=== PATIENT | female | born 1975 | race Two or more races ===

== ENCOUNTER 2021-04-04 06:39 | Outpatient (REF) | payer OTHER, SELFPAY ==
--- NOTE | ~2021-04-04 | XR_ITS ---
EXAMINATION: XR SCAPULA, LEFT CLINICAL INFORMATION: Left shoulder pain COMPARISON: None TECHNIQUE: AP and scapular Y views of the left scapula. FINDINGS: There is no visible acute fracture, dislocation or subluxations seen. There is no bony erosive changes. The soft tissues are normal XR/XR scapula LT IMPRESSION: Unremarkable left shoulder exam.
[2021-04-04 14:14] LABS: Alanine Aminotransferase 21 U/L (0-31); Albumin Level 4.4 g/dL (3.5-5.0); Alkaline Phosphatase 72 U/L (39-117); Anion Gap 13 (12-20); Aspartate Amino Transferase 24 U/L (5-31); Bilirubin Total 0.7 mg/dL (0.0-1.0); Blood Urea Nitrogen 19 mg/dL (9-16); Calcium 9.6 mg/dL (8.4-10.2); Carbon Dioxide 29 mmol/L (22-29); Chloride 104 mmol/L (96-108); Cholesterol 196 mg/dL; Estimated Glomerular Filt Rate > 60; Glucose Fasting 94 mg/dL (60-99); HDL Cholesterol 43 mg/dL; LDL Cholesterol Calculated 136 mg/dl; Potassium 4.9 mmol/L (3.3-5.1); Sodium 141 mmol/L (135-145); Total Protein 7.7 g/dL (6.5-8.0); Triglycerides 85 mg/dL
== END 2021-04-04 06:40 | disposition home or self-care (01) ==
LOC: HO.HMGCLDS 06:39
PROVIDERS: PCP Internal Medicine; Visit Provider Internal Medicine
DX: E78.5 Hyperlipidemia, unspecified (principal); I10 Essential (primary) hypertension; M89.8X1 Other specified disorders of bone, shoulder
CPT/HCPCS: 36415; 73010; 80053; 80061

== ENCOUNTER 2021-10-15 16:00 | Outpatient (RCR) | payer OTHER, SELFPAY ==
--- NOTE | 2021-09-03 18:31 | MHC.PT.EP ---
[facility] [place] Office [place] Office [place] Office [address] Xenia Esquivel [address] [phone] F: [phone] F: [phone] F: [phone] F: [phone] Physical Therapy Plan of Care Date of Evaluation: Date of Surgery: n/a Diagnosis: dorsalgia Assessment: Pt is a 46/yo F referred to PT for eval/treat of dorsalgia. Signs and symptoms are consistent with neck and upper back dysfunction resulting in significant decreased in tolerance to participate in her occupation, decreased tolerance of lifting objects off of the floor, as well as disrupted sleep secondary to postural impairment, Severe TTP from the level of T8 to suboccipital region, as well as, significant pain with cervical and shoulder end range ROM. Pt is deemed appropriate to receive skilled PT to address her physical impairment and improve her functional ability. Frequency and Duration: The patient will be seen 2x/wk for 5 wk Short Term Goals: Initiate HEP w/ evidence of compliance pt will report pain less than 2/10 at rest; initial 6/10 Usp Goals: pt will have be I with HEP pt will improve her Radha score by at least 5 point; initial score 11/50 pt will report that pain doesn't prevent her from sleeping; initial - my sleep is only 1/2 my normal amount Treatment Plan: Modalities to reduce pain, spasms and effusion. Manual therapy to restore motion and function. Therapeutic exercise to improve strength and flexibility. Neuromuscular re-education for posture and balance. Therapeutic activities to return to functional activities of daily living. Electronically signed by: Kumar Gupta PT Please sign and return to therapist. Thank you for your referral.
--- NOTE | 2021-10-15 19:15 | MHC.PT.DC ---
[facility] [place] Office [place] Office [place] Office [address] Xenia Esquivel [address] [phone] F: [phone] F: [phone] F: [phone] F: [phone] Physical Therapy Discharge Report Diagnosis: dorsalgia Date of Surgery: n/a Date of Evaluation: 09/03/21 Date of Discharge: 10/15/21 Treatments to Date: 9 Cancellations to Date: No Shows to Date: Discharge Status: Achieved Goals Improved Function Independent with HEP Discharge Summary: Apoorva has been an active participant in her therapy in and out of the clinic, has become I with her home program, has met all of her therapeutic goals, and is in agreement with DC at this time. Electronically signed by: Kumar Gupta PT. Please sign and return to therapist. Thank you for your referral.
== END 2021-10-15 19:16 | disposition home or self-care (01) ==
LOC: HO.PTCHIC 16:00
PROVIDERS: PCP Internal Medicine; Visit Provider Internal Medicine
DX: M54.9 Dorsalgia, unspecified (principal)
CPT/HCPCS: 97014; 97110; 97140; 97161

== ENCOUNTER 2022-11-18 14:35 | Outpatient (REF) | payer OTHER, SELFPAY | END 2022-11-18 14:36 | disposition home or self-care (01) | LOC: HO.MAMMO 14:35 | PROVIDERS: PCP Internal Medicine; Visit Provider Internal Medicine | DX: Z12.31 Encounter for screening mammogram for malignant neoplasm of breast (principal) | CPT/HCPCS: 77063; 77067 ==

== ENCOUNTER 2023-01-22 09:23 | Outpatient (REF) | payer OTHER, SELFPAY ==
[2023-01-22 11:10] LABS: MANUAL DIFF FLAG NO
[2023-01-22 11:19] LABS: Basophils Percent Auto 0.4 % (0-2); Eosinophils Absolute Auto 0.1 X10*3/uL (0.0-0.4); Eosinophils Percent Auto 1.9 % (0-4); Hematocrit 39.3 % (37.0-47.0); Hemoglobin 13.3 g/dl (12.0-16.0); Imm Gran Abs Auto 0.01 X10*3/uL (0.00-0.03); Imm Gran Pct Auto 0.2 % (0.0-0.4); Lymphocytes Absolute Auto 2.3 X10*3/uL (1.2-4.9); Lymphocytes Percent Auto 49.6 % (20-40); Mean Corpuscular HGB Conc 33.8 g/dl (31.0-35.0); Mean Corpuscular Hemoglobin 28.6 pg (27.0-33.0); Mean Corpuscular Volume 84.5 fL (80.0-98.0); Mean Platelet Volume 10.8 fL (9.4-12.3); Monocytes Absolute Auto 0.2 X10*3/uL (0.1-1.2); Monocytes Percent Auto 4.9 % (2-11); Platelet Count 245 X10*3/uL (160-400); Red Blood Count 4.65 X10*6/uL (4.20-5.50); Red Cell Distribution Width 12.8 % (11.0-16.0); White Blood Count 4.7 X10*3/uL (4.8-10.8)
[2023-01-22 13:08] LABS: Alanine Aminotransferase 39 U/L (0-31); Albumin Level 4.1 g/dL (3.5-5.0); Alkaline Phosphatase 71 U/L (39-117); Anion Gap 11 (12-20); Aspartate Amino Transferase 36 U/L (5-31); Bilirubin Total 0.9 mg/dL (0.0-1.0); Blood Urea Nitrogen 10 mg/dL (9-16); Calcium 8.9 mg/dL (8.4-10.2); Carbon Dioxide 26 mmol/L (22-29); Chloride 109 mmol/L (96-108); Cholesterol 218 mg/dL; Estimated Glomerular Filt Rate > 60; Glucose Fasting 95 mg/dL (60-99); HDL Cholesterol 49 mg/dL; LDL Cholesterol Calculated 153 mg/dl; Sodium 142 mmol/L (135-145); Total Protein 7.1 g/dL (6.5-8.0); Triglycerides 81 mg/dL
[2023-01-22 13:42] LABS: TSH reflex Free T4 1.28 uIU/mL (0.32-4.0); Vitamin B12 480 pg/mL (200-900); Vitamin D 25-OH Total 18.6 ng/mL (>30)
== END 2023-01-22 09:24 | disposition home or self-care (01) ==
LOC: HO.HMGCLDS 09:23
PROVIDERS: PCP Internal Medicine; Visit Provider Nurse Practitioner Family
DX: I10 Essential (primary) hypertension (principal)
CPT/HCPCS: 36415; 80053; 80061; 82306; 82607; 82746; 84443; 85025

== ENCOUNTER 2023-06-10 11:31 | Outpatient (AMB) | payer OTHER, MEDICAID, SELFPAY ==
[2023-06-10 11:45] VITALS: BP 158/96; PULSE 51; BMI 33.9
--- NOTE | 2023-06-10 11:45 | A.OFFVIS_ITS ---
Intake Vital Signs 06/10/23 11:45 Height 5 ft 2 in Weight 185 lb 10.067 oz BMI 33.9 BP 158/96 H Blood Pressure Location Lt brachial Position Sitting Pulse 51 Intake Visit Reasons: Colonoscopy Screening Intake Note: Apoorva presents in office as a new.patient for a colonoscopy screening PT CC: pt reports having constipation, bloating , pt denies any other GI Issues Supervisor Core Drilling Required: Yes Supervisor Core Drilling Language: Beninese Accompanied by: Self / Same As Patient Allergies penicillin V Allergy (Intermediate, Verified 06/10/23 11:47) hives HPI Colonoscopy Screening HPI Details 47 year old? female here today for pre colonoscopy screening.? Patient was sent to us by her PCP.? This is her first colonoscopy screening.? Patient denies any gastrointestinal symptoms in the past or at present.? Patient reports occasional constipation with rice or red meat. Patient believes that her older sister was diagnosed with colorectal cancer and had colon resection. Denies history of difficulty with sedation or anesthesia in the past.? Negative for history of sleep apnea.? Denies any history of cardiac, renal, pulmonary, or hepatic disease.?? No history of infectious? diseases like hepatitis A, B, C, HIV or tuberculosis.? Patient is not on any anticoagulation therapy. [facility] Medical History Essential hypertension Obese Pain of left clavicle Pain of left scapula Upper back pain Surgical History History of endometriosis Family History Father Hypertension Mother No problems noted. Social History Housing: House Alcohol intake: never Patient Tobacco Use Status: Never used Tobacco e-Cigarette/Vaping Use: Never Used Second Hand Smoke Exposure: No service: No Current occupational status: employed Current occupational exposures/hazards: No Cognitive needs: No Hearing needs: No Vision needs: No Review of Systems Const Denies weight gain and Denies weight loss ENT Reports no additional complaints, Denies dysphagia and Denies odynophagia Card Reports no additional complaints Resp Reports no additional complaints GI Denies abdominal pain, Denies belching, Denies melena, Reports bloating, Reports constipation, Denies dysphagia, Denies excessive flatus, Denies dyspepsia, Denies heartburn, Denies diarrhea, Denies loose stools, Denies nausea, Denies odynophagia and Denies vomiting Reports no additional complaints Musc Reports no additional complaints Neuro Reports no additional complaints Psych Reports no additional complaints Endo Reports no additional complaints Physical Exam Vital Signs: Last Vital Signs Pulse 51 06/10/23 11:45 BP 158/96 H 06/10/23 11:45 BMI result Body Mass Index 33.9 Const General: healthy appearing, no acute distress and well developed Nutritional Appearance: obese Orientation/consciousness: patient oriented x3 HEENT Head: Yes normal to inspection, Yes normocephalic and Yes atraumatic Face and sinus: Yes normal facial exam Mouth: Normal oral and palatal mucosa present Throat: Yes posterior oropharynx normal, Yes tonsils normal and Yes uvula midline Eyes General: appearance normal, both eyes and all related structures Neck Neck: Yes normal visual inspection, Yes full ROM and Yes trachea midline Thyroid: Thyroid normal Resp Effort & Inspection: normal respiratory effort, able to speak in complete sentences, no tracheal deviation and symmetric chest movement Auscultation: clear to auscultation bilaterally Cardio Rate: regular rate Heart sounds: S1 normal heart sound present and S2 normal heart sound present GI Inspection: Yes normal to inspection, No distended and Yes obesity Palpation (GI): Soft to palpation, not firm, nontender and No hepatosplenomegaly present Auscultation: normal bowel sounds General: Yes no CVA tenderness Back/Spine/Pelvis Back: no CVA tenderness Skin General skin exam: elasticity normal, turgor normal and dry skin Neuro General: patient oriented x3 Psych Appearance: grossly normal Mental Status: mental status grossly normal Speech and movement: Normal speech and movement present Affect: normal affect Assessment & Plan Assessment & Plan (1) Constipation: Code(s): K59.00 - Constipation, unspecified Qualifiers: Constipation type: slow transit constipation Qualified Code(s): K59.01 - Slow transit constipation Plan: Patient will start MiraLax daily. Patient was also encouraged to increase fluid intake and activity to promote better bowel motility. (2) Screening for colon cancer: Code(s): Z12.11 - Encounter for screening for malignant neoplasm of colon Plan: Patient denies any GI, cardiac or respiratory symptoms.? Reports constipation. Patient will return in 6 weeks to discuss colonoscopy. She is agreeable to plan of care and verbalizes understanding of instructions. She was given the opportunity ask questions and all questions answered. If thank you for allowing me to participate in her care Orders: Orders Liver Panel 06/10/23 R10.9 - Unspecified abdominal pain Medications: New polyethylene glycol 3350 (Miralax) 17 grams PO DAILY 510 grams 2RF Coding Level of Care Code New Pt Level 3 (52744) Diagnoses Constipation K59.01 Constipation type: slow transit constipation Screening for colon cancer Z12.11 Time Spent (min) 40 Comment 30 minutes spent with patient and additional 10 minutes spent reviewing her records
== END 2023-06-10 12:19 | disposition home or self-care (01) ==
PROVIDERS: PCP Internal Medicine; Visit Provider Nurse Practitioner Family
DX: K59.01 Slow transit constipation (principal); Z12.11 Encounter for screening for malignant neoplasm of colon
CPT/HCPCS: 99203

== ENCOUNTER → 2023-06-10 11:31 | Outpatient (BNVA) | payer OTHER, SELFPAY | PROVIDERS: PCP Internal Medicine; Visit Provider Nurse Practitioner Family | DX: Z12.11 Encounter for screening for malignant neoplasm of colon (principal); K59.01 Slow transit constipation | CPT/HCPCS: 99202 ==

== ENCOUNTER 2023-07-11 13:18 | Outpatient (AMB) | payer OTHER, SELFPAY ==
--- NOTE | 2023-07-11 13:25 | MHC.PC.OV ---
Vital Signs 07/11/23 13:27 07/11/23 14:03 Height 5 ft 2 in Weight 183 lb 8 oz BMI 33.6 BP 144/86 H 145/90 H Blood Pressure Location Lt brachial Lt brachial Position Sitting Sitting Pulse 64 Pulse Source Pulse Oximeter Pulse Oximetry (%) 99 Oxygen Delivery Method Room Air Intake Visit Reasons: 6 month follow up Intake Note: Pt is here for 6 months F/U for HTN. 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 Accompanied by: Self / Same As Patient Allergies penicillin V Allergy (Intermediate, Verified 07/11/23 13:31) hives Medication List - Last Reconciled 07/11/23 by Collette Carrillo MD cholecalciferol (vitamin D3) 50 mcg PO DAILY hydrochlorothiazide 12.5 mg PO QAM polyethylene glycol 3350 (Miralax) 17 grams PO DAILY Tobacco use date assessed: 01/11/23 Dental Screening Dental Screen Date: 07/11/23 Did you have a dental visit in the last 12 months?: Yes Did you have a dental problem in the last 6 months where you did not have access to dental care?: No Was dental information given to patient?: Patient has dentist HPI HPI Comments History of Present Illness Details This is a 48-year-old female with hypertension, hyperlipidemia and low vitamin-D that complains of pain of left scapular that started few months ago after she fell in the bathroom. This pain only happens when she is doing excessive activity. She has full active range of motion. The pain is relieved by by Tylenol. Blood pressure slightly elevated today and she has not take her hydrochlorothiazide. Blood pressure will be recheck in 3 weeks by nurse navigator. Last cholesterol was elevated but she did not require any statins. Lipid panel will be repeated. On vitamin-D supplements for low vitamin-D and levels will be repeated. No chest pain or shortness of breath. [facility] Medical History Essential hypertension Obese Pain of left clavicle Pain of left scapula Upper back pain Surgical History History of endometriosis Family History Father Hypertension Mother No problems noted. Social History Housing: House Alcohol intake: never Patient Tobacco Use Status: Never used Tobacco e-Cigarette/Vaping Use: Never Used Second Hand Smoke Exposure: No service: No Current occupational status: employed Current occupational exposures/hazards: No Cognitive needs: No Hearing needs: No Vision needs: No Questionnaire Thrive Questionnaire Date Thrive assessed: 01/11/23 ONDINA-7 AMB Questionnaire ONDINA-7 Date ONDINA - 7 assessed: 01/11/23 Source: Developed by Drs. Luis Manuel De Dios, Kavya Dey, Gerry Becerra and colleagues, with an educational norah from [employer]. Review of Systems Const All systems reviewed & are unremarkable except as noted in HPI and below Eyes Reports no additional complaints, Denies change in vision and Denies other visual disturbances Card Denies chest pain at rest, Denies chest pain with activity, Denies edema, Denies irregular heart rhythm, Denies claudication, Denies dyspnea, Denies dyspnea on exertion, Denies orthopnea, Denies paroxysmal nocturnal dyspnea and Denies slow heart rate Resp Denies cough, Denies dyspnea and Denies dyspnea on exertion GI Denies abdominal pain, Denies change in bowel habits, Denies excessive flatus, Denies nausea and Denies vomiting Denies urinary incontinence, Denies urinary hesitancy and Denies urinary urgency Musc Denies abnormal gait, Denies atrophy, Denies deformity and Denies limited range of motion Skin/Breast Denies bleeding lesions, Denies changing lesions and Denies rash Neuro Denies abnormal gait and Denies lack of coordination Physical exam (Primary Care) Vital Signs: Last Vital Signs Pulse 64 07/11/23 13:27 BP 144/86 H 07/11/23 13:27 Pulse Ox 99 07/11/23 13:27 Oxygen Delivery Method Room Air 07/11/23 13:27 BMI result Body Mass Index 33.6 Tobacco/Smoking Status: Tobacco use Status Tobacco use date assessed 01/11/23 07/11/23 13:26 Patient Tobacco Use Status Never used Tobacco 07/11/23 13:26 e-Cigarette/Vaping Use Never Used 07/11/23 13:26 Thrive Assessment: Date of Thrive Assessment Date Thrive assessed 01/11/23 07/11/23 13:26 Eyes General: appearance normal, both eyes and all related structures Eyelids: Yes eyelids normal Conjunctivae: conjunctivae normal Neck Neck: Yes normal visual inspection and Yes supple Resp Effort & Inspection: normal respiratory effort Auscultation: clear to auscultation bilaterally Cardio Jugular venous distension: no JVD Rate: regular rate Rhythm: regular rhythm Heart sounds: S1 normal heart sound present and S2 normal heart sound present Extrem General: Yes full ROM Assessment and Plan Assessment & Plan (1) Essential hypertension: Code(s): I10 - Essential (primary) hypertension Plan: Continue hydrochlorothiazide. Recheck blood pressure in 3 weeks with nurse navigator. Blood pressure goal is equal or less than 130/80. (2) Pain of left scapula: Code(s): M89.8X1 - Other specified disorders of bone, shoulder Plan: Continue [id number] Tylenol as needed. (3) Hyperlipidemia: Code(s): E78.5 - Hyperlipidemia, unspecified Plan: Start low-cholesterol diet. (4) Low vitamin D level: Code(s): R79.89 - Other specified abnormal findings of blood chemistry Plan: Continue vitamin-D supplement Orders: Orders Comprehensive [place]. Panel Fast Today I10 - Essential (primary) hypertension Lipid Panel Today E78.5 - Hyperlipidemia, unspecified Vitamin D 25-OH Total Today E55.9 - Vitamin D deficiency, unspecified Coding Level of Care Code Est Pt Level 4 (95975) Diagnoses Essential hypertension I10 Pain of left scapula M89.8X1 Hyperlipidemia E78.5 Low vitamin D level R79.89 Time Spent (min) 21
[2023-07-11 13:27] VITALS: BP 144/86; PULSE 64; O2SAT 99; BMI 33.6
[2023-07-11 14:03] VITALS: BP 145/90
== END 2023-07-11 13:43 | disposition home or self-care (01) ==
PROVIDERS: Visit Provider Internal Medicine
DX: I10 Essential (primary) hypertension (principal); M89.8X1 Other specified disorders of bone, shoulder; E78.5 Hyperlipidemia, unspecified; R79.89 Other specified abnormal findings of blood chemistry
CPT/HCPCS: 99214

== ENCOUNTER 2023-07-16 08:44 | Outpatient (REF) | payer OTHER, SELFPAY ==
[2023-07-16 11:56] LABS: Alanine Aminotransferase 24 U/L (0-31); Albumin Level 4.6 g/dL (3.5-5.0); Alkaline Phosphatase 82 U/L (39-117); Anion Gap 13 (12-20); Aspartate Amino Transferase 29 U/L (5-31); Bilirubin Total 1.1 mg/dL (0.0-1.0); Blood Urea Nitrogen 10 mg/dL (9-16); Carbon Dioxide 29 mmol/L (22-29); Chloride 102 mmol/L (96-108); Cholesterol 205 mg/dL; Estimated Glomerular Filt Rate > 60; Glucose Fasting 89 mg/dL (60-99); HDL Cholesterol 50 mg/dL; LDL Cholesterol Calculated 137 mg/dl; Potassium 3.3 mmol/L (3.3-5.1); Sodium 141 mmol/L (135-145); Total Protein 8.5 g/dL (6.5-8.0); Triglycerides 90 mg/dL
[2023-07-16 12:15] LABS: Vitamin D 25-OH Total 30.1 ng/mL (>30)
== END 2023-07-16 08:45 | disposition home or self-care (01) ==
LOC: HO.HMGCLDS 08:44
PROVIDERS: PCP Internal Medicine; Visit Provider Internal Medicine
DX: E55.9 Vitamin D deficiency, unspecified (principal); I10 Essential (primary) hypertension; E78.5 Hyperlipidemia, unspecified
CPT/HCPCS: 36415; 80053; 80061; 82306

== ENCOUNTER 2023-07-19 11:23 | Outpatient (AMB) | payer OTHER, SELFPAY ==
--- NOTE | 2023-07-19 11:32 | MHC.OFFVIS ---
Intake Vital Signs 07/19/23 11:33 Height 5 ft 2 in Weight 181 lb 14.102 oz BMI 33.3 BP 163/92 H Blood Pressure Location Lt brachial Position Sitting Pulse 73 Intake Visit Reasons: 6 week fu Intake Note: Apoorva presents in office as a est.patient for a 6week f/u for constipation PT CC: pt reports having no concerns pt denies any other GI Issues Patient Financial Representative Required: Yes Patient Financial Representative Language: Bengali Accompanied by: Self / Same As Patient Allergies penicillin V Allergy (Intermediate, Verified 07/19/23 11:32) hives HPI 6 week fu HPI Details LAST VISIT: HPI 47 year old? female here today for pre colonoscopy screening.? Patient was sent to us by her PCP.? This is her first colonoscopy screening.? Patient denies any gastrointestinal symptoms in the past or at present.? Patient reports occasional constipation with rice or red meat.? Patient believes that her older sister was diagnosed with colorectal cancer and had colon resection. ? Denies history of difficulty with sedation or anesthesia in the past.? Negative for history of sleep apnea.? Denies any history of cardiac, renal, pulmonary, or hepatic disease.?? No history of infectious? diseases like hepatitis A, B, C, HIV or tuberculosis.? Patient is not on any anticoagulation therapy.?? ASSESSMENT AND PLAN Constipation Patient will start MiraLax daily. Patient was also encouraged to increase fluid intake and activity to promote better bowel motility. Screening for colon cancer Patient denies any GI, cardiac or respiratory symptoms.? Reports constipation. Patient will return in 6 weeks to discuss colonoscopy. She is agreeable to plan of care and verbalizes understanding of instructions. She was given the opportunity ask questions and all questions answered. ? If thank you for allowing me to participate in her care Plan Orders Orders Liver Panel 06/10/23 R10.9 Medications New polyethylene glycol 3350 (Miralax) 17 grams PO DAILY 510 grams 2RF TODAY'S VISIT: Patient is here today for follow-up to discuss colonoscopy results. Patient reports that she is moving her bowels better. No change otherwise last visit. Patient continues to have no cardiac or respiratory symptoms. No issues with anesthesia in the past. No history of sleep apnea. Not on any anticoagulation therapy. Liver enzymes repeated and patient had normal results. [facility] Medical History Essential hypertension Obese Pain of left clavicle Pain of left scapula Upper back pain Surgical History History of endometriosis Family History Father Hypertension Mother No problems noted. Social History Housing: House Alcohol intake: never Patient Tobacco Use Status: Never used Tobacco e-Cigarette/Vaping Use: Never Used Second Hand Smoke Exposure: No service: No Current occupational status: employed Current occupational exposures/hazards: No Cognitive needs: No Hearing needs: No Vision needs: No Review of Systems Const Denies weight gain and Denies weight loss ENT Reports no additional complaints, Denies dysphagia and Denies odynophagia Card Reports no additional complaints Resp Reports no additional complaints GI Denies abdominal pain, Denies belching, Denies melena, Denies bloating, Denies change in bowel habits, Denies dysphagia, Denies excessive flatus, Denies dyspepsia, Denies heartburn, Denies diarrhea, Denies loose stools, Denies nausea, Denies odynophagia and Denies vomiting Musc Reports no additional complaints Neuro Reports no additional complaints Psych Reports no additional complaints Endo Reports no additional complaints Physical Exam Vital Signs: Last Vital Signs Pulse 73 07/19/23 11:33 BP 163/92 H 07/19/23 11:33 BMI result Body Mass Index 33.3 Const General: healthy appearing, no acute distress and well developed Nutritional Appearance: obese Orientation/consciousness: patient oriented x3 HEENT Head: Yes normal to inspection, Yes normocephalic and Yes atraumatic Face and sinus: Yes normal facial exam Mouth: Normal oral and palatal mucosa present Throat: Yes posterior oropharynx normal, Yes tonsils normal and Yes uvula midline Eyes General: appearance normal, both eyes and all related structures Neck Neck: Yes normal visual inspection, Yes full ROM and Yes trachea midline Thyroid: Thyroid normal Resp Effort & Inspection: normal respiratory effort, able to speak in complete sentences, no tracheal deviation and symmetric chest movement Auscultation: clear to auscultation bilaterally Cardio Rate: regular rate Heart sounds: S1 normal heart sound present and S2 normal heart sound present GI Inspection: Yes normal to inspection, No distended and Yes obesity Palpation (GI): Soft to palpation, not firm, nontender and No hepatosplenomegaly present Auscultation: normal bowel sounds General: Yes no CVA tenderness Back/Spine/Pelvis Back: no CVA tenderness Skin General skin exam: elasticity normal, turgor normal and dry skin Neuro General: patient oriented x3 Psych Appearance: grossly normal Mental Status: mental status grossly normal Speech and movement: Normal speech and movement present Results Reviewed Results Reviewed: Laboratory Tests 07/16/23 08:47 AST 29 ALT 24 25-OH Vitamin D Total 30.1 Assessment & Plan Assessment & Plan (1) Screening for colon cancer: Code(s): Z12.11 - Encounter for screening for malignant neoplasm of colon Plan: As mentioned above in HPI patient has no issues with anesthesia in the past. No history of sleep apnea. Not on any anticoagulation medication. Denies any cardiac or respiratory symptoms. What to expect before during and after the procedure discussed with patient. Clear liquid diet and how to prep before the procedure discussed with patient (2) Constipation: Code(s): K59.00 - Constipation, unspecified Qualifiers: Constipation type: slow transit constipation Qualified Code(s): K59.01 - Slow transit constipation Plan: Continue MiraLax daily. Patient was encouraged to increase fluid intake and activity to promote better bowel motility. I will see patient after the procedure, sooner on as needed basis. Patient is agreeable to this plan and verbalizes understanding of instructions. She was given the opportunity to ask questions and all questions answered. Thank you for allowing me to participate in her care Medications: New bisacodyl (Dulcolax (bisacodyl)) take 2 tabs at noon the day before your colonoscopy 10 mg (2 x 5 mg) PO ONCE 2 tabs 0RF 1 day Z12.11 - Encounter for screening for malignant neoplasm of colon polyethylene glycol 3350 (Miralax) As directed by gastroenterology department at [facility] 238 grams PO ONCE 238 grams 0RF Z12.11 - Encounter for screening for malignant neoplasm of colon Coding Level of Care Code Est Pt Level 3 (92277) Diagnoses Screening for colon cancer Z12.11 Constipation K59.01 Constipation type: slow transit constipation Time Spent (min) 30 Comment 20 minutes spent with patient and additional 10 minutes spent reviewing her records
[2023-07-19 11:33] VITALS: BP 163/92; PULSE 73; BMI 33.3
== END 2023-07-19 12:08 | disposition home or self-care (01) ==
PROVIDERS: PCP Internal Medicine; Visit Provider Nurse Practitioner Family
DX: Z12.11 Encounter for screening for malignant neoplasm of colon (principal); K59.01 Slow transit constipation; Z01.818 Encounter for other preprocedural examination
CPT/HCPCS: 99213

== ENCOUNTER → 2023-07-19 11:23 | Outpatient (BNVA) | payer OTHER, SELFPAY | PROVIDERS: PCP Internal Medicine; Visit Provider Nurse Practitioner Family | DX: Z12.11 Encounter for screening for malignant neoplasm of colon (principal); K59.01 Slow transit constipation | CPT/HCPCS: 99212 ==

== ENCOUNTER 2023-12-20 08:09 | Outpatient (REF) | payer OTHER, SELFPAY | END 2023-12-20 08:10 | disposition home or self-care (01) | LOC: HO.MAMMO 08:09 | PROVIDERS: PCP Internal Medicine; Visit Provider Internal Medicine | DX: Z12.31 Encounter for screening mammogram for malignant neoplasm of breast (principal) | CPT/HCPCS: 77063; 77067 ==

== ENCOUNTER → 2023-12-20 08:15 | Outpatient (BNV) | payer OTHER, SELFPAY | PROVIDERS: PCP Internal Medicine; Visit Provider Radiology Diagnostic Radiology | DX: Z12.31 Encounter for screening mammogram for malignant neoplasm of breast (principal) | CPT/HCPCS: 77063; 77067 ==

== ENCOUNTER 2023-12-30 08:01 | Day surgery (SDC) | payer OTHER, SELFPAY ==
--- NOTE | 2023-12-29 09:32 | HO.ANESPROP2 ---
HPI - Anesthesia Eval Consult details Narrative: 48yo F for Colonoscopy PMFSH Active Problems Active Problems: All Active Problems (Updated 02/02/23 @ 13:57 by JYOTI Sultana) Hyperlipidemia (Acute) Elevated LFTs (Acute) Low vitamin D level (Acute) Adult general medical exam (Acute) Cervical cancer screening (Acute) Screening for colon cancer (Acute) Upper back pain (Acute) Diarrhea (Acute) Pain of left scapula (Acute) Pain of left clavicle (Acute) Obese (Acute) Essential hypertension (Acute) Past Medical History Medical History Essential hypertension Obese Pain of left clavicle Pain of left scapula Upper back pain Family History Family History Father Hypertension Mother No problems noted. Surgical History Surgical History History of endometriosis Social History Social History Housing: House Alcohol intake: never Patient Tobacco Use Status: Never used Tobacco e-Cigarette/Vaping Use: Never Used Second Hand Smoke Exposure: No service: No Current occupational status: employed Current occupational exposures/hazards: No Cognitive needs: No Hearing needs: No Vision needs: No Meds Allergies Allergy/AdvReac Type Severity Reaction Status Date / Time penicillin V Allergy Intermediate hives Verified 07/19/23 11:32 Assessment and Plan Assessment Anesthesia Assessment: Chart Reviewed
[2023-12-30 09:48] VITALS: BMI 32.2
[2023-12-30 10:04] VITALS: BP 138/100; PULSE 82; RESP 16; TEMP 36.3; O2SAT 99
[2023-12-30] MEDS: Lactated Ringers 1,000 ML 100 ML IVCONT (10:17)
--- NOTE | 2023-12-30 10:56 | MHC.SHP ---
Pre-Procedural Eval Section A - 24 Hr Update-Section A only Date of Service: 12/30/23 The patient is an INPATIENT: No The patient has been examined within 24 hours of the surgical procedure. The History & Physical has been completed within 30 days and I have reviewed it.: No Section B - Complete if H&P > 30 days Chief Complaint: Colon cancer screening, Relevant Family History (Specify if Yes): Yes Relevant Social History: None Present Medications: see Short Stay Collaborative assessment Medical History: Significant History (Essential hypertension Obese Pain of left clavicle Pain of left scapula Upper back pain) History of Previous Operations: Relevant previous surgery/procedure and date(s) (History of endometriosis) Allergies: Allergies Allergy/AdvReac Type Severity Reaction Status Date / Time penicillin V Allergy Intermediate hives Verified 12/30/23 10:02 Review of Systems Sugical H&P ROS: Negative: Constitution, Cardiovascular, Respiratory and Gastrointestinal Exam Surgical H&P Exam: Normal: Heart, Normal: Lungs, Normal: Extremities and Normal: Abdomen Plan Diagnosis/Plan: Unchanged I have reviewed the history and physical and performed a pertinent physical examination on my patient. No changes have occurred unless specified. Time Spent With Patient Time: Total time managing care of this patient today ____ minutes.
--- NOTE | 2023-12-30 11:14 | HO.ANESPROP2 ---
[facility] Active Problems Active Problems: All Active Problems (Updated 02/02/23 @ 13:57 by JYOTI Sultana) Hyperlipidemia (Acute) Elevated LFTs (Acute) Low vitamin D level (Acute) Adult general medical exam (Acute) Cervical cancer screening (Acute) Screening for colon cancer (Acute) Upper back pain (Acute) Diarrhea (Acute) Pain of left scapula (Acute) Pain of left clavicle (Acute) Obese (Acute) Essential hypertension (Acute) Past Medical History Medical History Upper back pain Pain of left scapula Pain of left clavicle Obese Essential hypertension Family History Family History Father Hypertension Mother No problems noted. Family history of problems with anesthesia: No Surgical History Surgical History History of endometriosis History of Problems with Anesthesia: No Social History Social History Housing: House Alcohol intake: never Patient Tobacco Use Status: Never used Tobacco e-Cigarette/Vaping Use: Never Used Second Hand Smoke Exposure: No Use of substances other than those prescribed or required for medical reasons: No Are you DNR?: No Advance Directives: No Advance Directives Information Provided: Yes service: No Current occupational status: employed Current occupational exposures/hazards: No Cognitive needs: No Hearing needs: No Vision needs: No Meds Allergies Allergy/AdvReac Type Severity Reaction Status Date / Time penicillin V Allergy Intermediate hives Verified 12/30/23 10:02 Active Medications: Current Medications Lactated Ringer's (Lr) 1,000 mls @ 100 mls/hr IVCONT .Q10H RAJIV Last Admin: 12/30/23 10:17 Dose: 100 mls/hr Exam Height,Weight and Vital Signs: Height 5 ft 3 in Weight 82.372 kg Last Vital Signs Temp 97.3 F 12/30/23 10:04 Pulse 82 12/30/23 10:04 Resp 16 12/30/23 10:04 BP 138/100 H 12/30/23 10:04 Pulse Ox 99 12/30/23 10:04 O2 Del Method Room Air 12/30/23 10:04 Airway Mallampati Class: II TM Dist: >3cm Neck ROM: Full Heart: RRR Lungs: CTA Assessment and Plan Assessment Anesthesia Assessment: Anesthesia Plan Discussed Final Anesthetic Review Family History of Problems with Anesthesia: No History of Problems with Anesthesia: No NPO: Yes ASA Class: II Final Preanesthetic Review: Meds/Allgs Chart Reviewed, Consent Obtained/Reviewed and Anes Risks/Benef Reviewed Patient Risk: Low Procedure Risk: Low Anesthetic Plan Anesthetic Plan: MAC: Disposition: Standard PACU
--- NOTE | 2023-12-30 11:42 | W.PM.OPN ---
Operative Note Operative Note Date of Service: 12/30/23 Narrative: COLONOSCOPY TILL CECUM WITH SNARE POLYPECTOMY Pre-op diagnosis: Colon cancer screening. Post-op diagnosis:? Colon polyps, diverticulosis Endoscopist:? Jorge Roth MD Anesthesia:?MAC Consent: Indications for the procedure and potential complications of bleeding, perforation, reaction to medications and missed diagnosis were discussed with the patient and informed consent was obtained. Instrument: Olympus PCF H 190 L variable stiffness pediatric colonoscope Monitoring: Vital signs and clinical assessment, intermittent blood pressure monitoring, continuous EKG monitoring, Pulse oximetry and Carbon Dioxide monitoring were done throughout the procedure. Please see anesthesia flowsheet. Colon withdrawl time was 16 minutes. Procedure: The patient was placed in the left lateral decubitis position and pre-procedure medications were administered. After a digital rectal examination of the ano-rectum, the video colonoscope was inserted into the rectum and advanced through the colon to the cecum. The colonoscope was slowly withdrawn in a retrograde panoramic fashion and the colon mucosa was carefully examined including a retroflexed view of the rectum. Findings and interventions are described below. Procedure Difficulty: Without difficulty Findings: Terminal Ileum: Not evaluated Cecum: Normal Ascending Colon: A 12 -15 mm sessile polyp overlying a fold in the mid AC - removed with a hot snare Transverse Colon: Normal Descending Colon: Normal Sigmoid Colon: Normal Rectum: Normal Ano-rectum: Normal Colon preparation: Excellent [place] Bowel Preparation Scale Right colon; 3 Transverse colon: 3 Left colon; 3 (0 = Unprepared colon segment with mucosa not seen due to solid stool that cannot be cleared. 1 = Portion of mucosa of the colon segment seen, but other areas of the colon segment not well seen due to staining, residual stool and/or opaque liquid. 2 = Minor amount of residual staining, small fragments of stool and/or opaque liquid, but mucosa of colon segment seen well. 3 = Entire mucosa of colon segment seen well with no residual staining, small fragments of stool or opaque liquid) Impression and Post Procedure Diagnosis: Colonoscopy Findings: One medium sized polyp removed Moderate diverticulosis seen in the sigmoid colon Plan: Await pathology results Patient has an appointment on 01/13/24 in the GI Clinic with Inés Cardoso FNP-BC. Repeat Colonoscopy interval based on path results - in 3 years if polyps are adenomatous and 10 years if polyps are hyperplastic (pt stated her sister had a colon resection due to a twisted colon and denied a FH of colon cancer). Above findings were reviewed with the patient and colon polyps and diverticulosis handouts were given in the discharge area
[2023-12-30 12:18] VITALS: BP 123/77; PULSE 90; RESP 16; TEMP 36.8; O2SAT 97
[2023-12-30 12:33] VITALS: BP 126/89; PULSE 71; RESP 14; O2SAT 100
[2023-12-30 12:48] VITALS: BP 127/87; PULSE 80; RESP 15; TEMP 36.1; O2SAT 100
--- NOTE | 2023-12-30 12:48 | HO.POSTANES ---
Post Anesthesia Evaluation Post Anesthesia Evaluation Date of Service: 12/30/23 Vital Signs: Vital Signs Temp Pulse Resp BP Pulse Ox O2 Del Method 12/30/23 12:33 71 14 126/89 100 Room Air 12/30/23 12:18 98.3 F 90 16 123/77 97 Room Air 12/30/23 10:04 97.3 F 82 16 138/100 H 99 Room Air Anesthesia: Monitored Mental Status: Awake Pain Control: Satisfactory Nausea/Vomiting: None Hydration: Adequate Anesthesia-Related Issues: No Anes. Related Issues
--- NOTE | 2023-12-30 13:51 | HO.POSTANES ---
Post Anesthesia Evaluation Post Anesthesia Evaluation Date of Service: 12/30/23 Vital Signs: Vital Signs Temp Pulse Resp BP Pulse Ox O2 Del Method 12/30/23 12:48 97 F 80 15 127/87 100 Room Air 12/30/23 12:33 71 14 126/89 100 Room Air 12/30/23 12:18 98.3 F 90 16 123/77 97 Room Air 12/30/23 10:04 97.3 F 82 16 138/100 H 99 Room Air Anesthesia: Monitored Mental Status: Awake Pain Control: Satisfactory Nausea/Vomiting: None Hydration: Adequate Anesthesia-Related Issues: No Anes. Related Issues
== END 2023-12-30 12:55 | disposition home or self-care (01) ==
PROVIDERS: PCP Internal Medicine; Visit Provider Internal Medicine Gastroenterology
PROC: 0DJD8ZZ Inspection of Lower Intestinal Tract, Via Natural or Artificial Opening Endoscopic (ICD-10-PCS; CPT 45378; principal; 2023-12-30 11:10)
DX: Z12.11 Encounter for screening for malignant neoplasm of colon (principal); D12.2 Benign neoplasm of ascending colon; K57.30 Diverticulosis of large intestine without perforation or abscess without bleeding; K59.01 Slow transit constipation; I10 Essential (primary) hypertension; E66.9 Obesity, unspecified; Z68.33 Body mass index [BMI] 33.0-33.9, adult; Z79.899 Other long term (current) drug therapy; Z88.0 Allergy status to penicillin
CPT/HCPCS: 45385; 88305; J2704

== ENCOUNTER → 2023-12-30 08:01 | Outpatient (BNV) | payer OTHER, SELFPAY | PROVIDERS: PCP Internal Medicine; Visit Provider Internal Medicine Gastroenterology | DX: Z12.11 Encounter for screening for malignant neoplasm of colon (principal); D12.2 Benign neoplasm of ascending colon; K57.30 Diverticulosis of large intestine without perforation or abscess without bleeding | CPT/HCPCS: 45385 ==

== ENCOUNTER 2024-01-19 09:35 | Outpatient (AMB) | payer OTHER, SELFPAY ==
--- NOTE | 2024-01-19 09:40 | MHC.PC.OV ---
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 Accompanied by: Self / Same As Patient Allergies penicillin V Allergy (Intermediate, Verified 01/19/24 10:05) hives Medication List - Last Reconciled 01/19/24 by Collette Carrillo MD cholecalciferol (vitamin D3) 50 mcg PO DAILY hydrochlorothiazide 12.5 mg PO QAM Tobacco use date assessed: 01/19/24 Dental Screening Dental Screen Date: 01/19/24 Did you have a dental visit in the last 12 months?: Yes Did you have a dental problem in the last 6 months where you did not have access to dental care?: No Was dental information given to patient?: Patient has dentist HPI HPI Comments History of Present Illness Details This is a 48-year-old female that comes for her physical exam. Last mammogram was November 2023. Last colonoscopy was December 2023 showing tubular adenoma next colonoscopy should be in 3 years. Last Pap smear was 2022 as per patient and was normal. Denies any chest pain or shortness of breath. No fever or cough. Doing well. [facility] Medical History Upper back pain Pain of left scapula Pain of left clavicle Obese Essential hypertension Surgical History History of endometriosis Family History Father Hypertension Mother No problems noted. Social History Housing: House Alcohol intake: never Patient Tobacco Use Status: Never used Tobacco e-Cigarette/Vaping Use: Never Used Second Hand Smoke Exposure: No service: No Current occupational status: employed Current occupational exposures/hazards: No Cognitive needs: No Hearing needs: No Vision needs: No Questionnaire PHQ-9 Over the last 2 weeks, how often have you been bothered by any of the following problems? 1. Little interest or pleasure in doing things: not at all 2. Feeling down, depressed, or hopeless: not at all 3. Trouble falling or staying asleep, or sleeping too much: not at all 4. Feeling tired or having little energy: not at all 5. Poor appetite or overeating: not at all 6. Feeling bad about yourself - or that you are a failure or have let yourself or your family down: not at all 7. Trouble concentrating on things, such as reading the newspaper or watching television: not at all 8. Moving or speaking so slowly that other people could have noticed. Or the opposite - being so fidgety or restless that you have been moving around a lot more than usual: not at all 9. Thoughts that you would be better off or of hurting yourself in some way: not at all Total score: 0 Depression Screening Interpretation: Negative Depression Screening Done: Yes 24699 - PHQ-9 Billing: Yes Source: Developed by Drs. Luis Manuel De Dios, Kavya Dey, Gerry Becerra and colleagues, with an educational norah from [employer]. Thrive Questionnaire Date Thrive assessed: 01/19/24 I am a: Patient What is your living situation today?: I have a steady place to live Within the past 12 months, did the food you bought not last and you didn't have the money to get more?: Never true Within the past 12 months, did you worry whether your food would run out before you got money to buy more?: Never true Do you have trouble paying for medicines?: No Do you have trouble getting transportation to medical appointments?: No Do you have trouble paying your heating and electricity bill?: No Do you have trouble taking care of your child, family member or friend?: No Do you have trouble with day-to-day activities such as bathing, preparing meals, shopping, managing finances, etc.?: No Are you currently unemployed and looking for a job?: No Are you interested in more education?: No Please select the resources that you would like help with: None Currently or been in a relationship where the following occur: no concerns reported THRIVE Score: 0 AUDIT C Alcohol Use Questionnaire (AUDIT-C) 1. How often do you have a drink containing alcohol?: Never Total Score: 0 Score Reviewed/Action Taken: No ONDINA-7 AMB Questionnaire ONDINA-7 Date ONDINA - 7 assessed: 01/19/24 Feeling nervous, anxious, or on edge: 0 = Not at all Not being able to stop or control worryin = Not at all Worrying too much about different things: 0 = Not at all Trouble relaxin = Not at all Being so restless that it is hard to sit still: 0 = Not at all Becoming easily annoyed or irritable: 0 = Not at all Feeling afraid as if something awful might happen: 0 = Not at all Total ONDINA-7 score (0-4 normal; 5-9 mild; 10-14 moderate; 15-21 severe): 0 Source: Developed by Drs. Luis Manuel De Dios, Kavya Dey, Gerry Becerra and colleagues, with an educational norah from [employer]. ONDINA-7 Assessment Billing ONDINA-7 Assessment Tool: ONDINA-7 Assessment 94549 Review of Systems Const All systems reviewed & are unremarkable except as noted in HPI and below Eyes Reports no additional complaints, Denies change in vision and Denies other visual disturbances Card Denies chest pain at rest, Denies chest pain with activity, Denies edema, Denies irregular heart rhythm, Denies claudication, Denies dyspnea, Denies dyspnea on exertion, Denies orthopnea, Denies paroxysmal nocturnal dyspnea and Denies slow heart rate Resp Denies cough, Denies dyspnea and Denies dyspnea on exertion GI Denies abdominal pain, Denies change in bowel habits, Denies excessive flatus, Denies nausea and Denies vomiting Denies urinary incontinence, Denies urinary hesitancy and Denies urinary urgency Musc Denies abnormal gait, Denies atrophy, Denies deformity and Denies limited range of motion Skin/Breast Denies bleeding lesions, Denies changing lesions and Denies rash Neuro Denies abnormal gait, Denies behavioral changes, Denies confusion and Denies lack of coordination Psych Denies behavioral changes and Denies confusion Physical exam (Primary Care) Vital Signs: Last Vital Signs BP 132/84 01/19/24 09:42 BMI result Body Mass Index 32.1 Tobacco/Smoking Status: Tobacco use Status Tobacco use date assessed 01/19/24 01/19/24 09:46 Patient Tobacco Use Status Never used Tobacco 01/19/24 09:46 e-Cigarette/Vaping Use Never Used 01/19/24 09:46 PHQ-9: PHQ-9 Score PHQ-9: Total score 0 01/19/24 10:10 Depression Screening Interpretation: Negative Thrive Assessment: Date of Thrive Assessment Date Thrive assessed 01/19/24 01/19/24 09:46 Currently or been in a relationship where the following occur: no concerns reported Const General: No confusion Orientation/consciousness: patient oriented x3 and No confusion HENMT Head: Yes normal to inspection, Yes normocephalic and Yes atraumatic Ears: external ears normal Eyes General: appearance normal, both eyes and all related structures Eyelids: Yes eyelids normal Conjunctivae: conjunctivae normal Neck Neck: Yes normal visual inspection and Yes supple Resp Effort & Inspection: normal respiratory effort Auscultation: clear to auscultation bilaterally Cardio Jugular venous distension: no JVD Rate: regular rate Rhythm: regular rhythm Heart sounds: S1 normal heart sound present and S2 normal heart sound present GI Inspection: Yes normal to inspection Palpation (GI): Soft to palpation and nontender Auscultation: normal bowel sounds Skin General skin exam: no rashes or lesions noted Neuro General: patient oriented x3, no focal motor deficits and No confusion Extrem General: Yes full ROM Psych Appearance: grossly normal Assessment and Plan Assessment & Plan (1) Physical exam: Code(s): Z00.00 - Encounter for general adult medical examination without abnormal findings Plan: Repeat in a year. Orders: Orders Vitamin D 25-OH Total Today E55.9 - Vitamin D deficiency, unspecified Lipid Panel Today E78.5 - Hyperlipidemia, unspecified, Z00.00 - Encounter for general adult medical examination without abnormal findings Comprehensive [place]. Panel Fast Today Z00.00 - Encounter for general adult medical examination without abnormal findings Coding Level of Care Code Est Pt Prev Care 40-64y(08236) Diagnoses Physical exam Z00.00 Additional Codes ONDINA-7 Assessment Billing - ONDINA-7 Assessment Tool: ONDINA-7 Assessment 30626 ([id number]) Time Spent (min) 31
[2024-01-19 09:42] VITALS: BP 132/84; BMI 32.1
== END 2024-01-19 10:15 | disposition home or self-care (01) ==
PROVIDERS: Visit Provider Internal Medicine
DX: Z00.00 Encounter for general adult medical examination without abnormal findings (principal)
CPT/HCPCS: 99396

== ENCOUNTER 2024-02-10 08:04 | Outpatient (REF) | payer OTHER, SELFPAY ==
--- NOTE | ~2024-02-10 | XR_ITS ---
EXAMINATION: XR SHOULDER, LEFT CLINICAL INFORMATION: Pain in unspecified shoulder. COMPARISON: Left scapular radiographs of April 04, 2021. TECHNIQUE: AP external rotation, Grashey, scapular Y, and axillary views of the left shoulder. FINDINGS: Acromioclavicular alignment is preserved. Glenohumeral alignment is preserved. No abnormal soft tissue calcifications identified adjacent to the humeral head. Rightward curvature and degenerative changes are seen on very limited images of the upper thoracic spine. Mild hypertrophic change along the inferomedial aspect of the glenoid. XR/XR shoulder LT min 2V IMPRESSION: Mild degenerative changes.
== END 2024-02-10 08:05 | disposition home or self-care (01) ==
LOC: HO.HOSX 08:04
PROVIDERS: Visit Provider Orthopaedic Surgery
DX: M25.512 Pain in left shoulder (principal); M24.812 Other specific joint derangements of left shoulder, not elsewhere classified
CPT/HCPCS: 73030; 99202

== ENCOUNTER 2024-02-10 09:45 | Outpatient (AMB) | payer OTHER, SELFPAY ==
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
[2024-02-10 10:01] VITALS: BMI 32.1
== END 2024-02-10 10:24 | disposition home or self-care (01) ==
PROVIDERS: PCP Internal Medicine; Visit Provider Orthopaedic Surgery
DX: M24.812 Other specific joint derangements of left shoulder, not elsewhere classified (principal)
CPT/HCPCS: 99203

== ENCOUNTER 2024-02-13 13:05 | Outpatient (AMB) | payer OTHER, SELFPAY ==
--- NOTE | 2024-02-13 13:07 | MHC.OFFVIS ---
Intake Vital Signs 02/13/24 13:09 Height 5 ft 3 in Weight 183 lb 13.848 oz BMI 32.6 BP 156/75 H Blood Pressure Location Lt brachial Position Sitting Pulse 80 Pulse Source Pulse Oximeter Intake Visit Reasons: s/p colon Intake Note: Pt presents to the office today for a s/p colo. Pt states she is feeling well and denies any concerns at this time. Allergies penicillin V Allergy (Intermediate, Verified 02/13/24 13:10) hives HPI s/p colon HPI Details LAST VISIT: Screening for colon cancer As mentioned above in HPI patient has no issues with anesthesia in the past. No history of sleep apnea. Not on any anticoagulation medication. Denies any cardiac or respiratory symptoms. What to expect before during and after the procedure discussed with patient. Clear liquid diet and how to prep before the procedure discussed with patient Constipation Continue MiraLax daily. Patient was encouraged to increase fluid intake and activity to promote better bowel motility. I will see patient after the procedure, sooner on as needed basis. Patient is agreeable to this plan and verbalizes understanding of instructions. She was given the opportunity to ask questions and all questions answered. ? Thank you for allowing me to participate in her care Plan Medications New bisacodyl (Dulcolax (bisacodyl)) take 2 tabs at noon the day before your colonoscopy 10 mg (2 x 5 mg) PO ONCE 2 tabs 0RF 1 day Z12.11 - Encounter for screening for malignant neoplasm of colon polyethylene glycol 3350 (Miralax) As directed by gastroenterology department at [facility] 238 grams PO ONCE 238 grams 0RF Z12.11 - Encounter for screening for malignant neoplasm of colon COLONOSCOPY Findings: Terminal Ileum: Not evaluated Cecum: Normal Ascending Colon: A 12 -15 mm sessile polyp overlying a fold in the mid AC - removed with a hot snare Transverse Colon: Normal Descending Colon: Normal Sigmoid Colon: Normal Rectum: Normal Ano-rectum: Normal Colon preparation: Excellent Quebeck Bowel Preparation Scale Right colon; 3 Transverse colon: 3 Left colon; 3 (0 = Unprepared colon segment with mucosa not seen due to solid stool that cannot be cleared. 1 = Portion of mucosa of the colon segment seen, but other areas of the colon segment not well seen due to staining, residual stool and/or opaque liquid. 2 = Minor amount of residual staining, small fragments of stool and/or opaque liquid, but mucosa of colon segment seen well. 3 = Entire mucosa of colon segment seen well with no residual staining, small fragments of stool or opaque liquid) Impression and Post Procedure Diagnosis: Colonoscopy Findings: One medium sized polyp removed Moderate diverticulosis seen in the sigmoid colon Plan: Repeat Colonoscopy interval based on path results - in 3 years if polyps are adenomatous and 10 years if polyps are hyperplastic (pt stated her sister had a colon resection due to a twisted colon and denied a FH of colon cancer). PATHOLOGY RESULTS Diagnosis Colon, ascending, polyp: Tubular adenoma; negative for high-grade dysplasia and carcinoma TODAY'S VISIT: Patient is here today for follow-up and to discuss colonoscopy results. Patient denies any ill effects from the prep, anesthesia or procedure itself. Patient states that she has been feeling well. Denies any melena, hematochezia, unintentional weight loss or ribbon like stools. One tubular adenoma found in the ascending colon without high-grade dysplasia or carcinoma. Moderate diverticulosis in sigmoid colon. Patient denies any abdominal pain or discomfort. States that she is moving her bowels without any issues. Denies any GI concerning symptoms. Colonoscopy results as well as biopsy results discussed with patient. [facility] Medical History (Updated 02/21/24 @ 20:17 by Inés Cardoso [facility]) Diverticulosis Tubular adenoma of colon Upper back pain Pain of left scapula Pain of left clavicle Obese Essential hypertension Surgical History History of endometriosis Family History Father Hypertension Mother No problems noted. 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 Current occupational exposures/hazards: No Cognitive needs: No Hearing needs: No Vision needs: No Review of Systems Const Denies weight gain and Denies weight loss ENT Reports no additional complaints, Denies dysphagia and Denies odynophagia Card Reports no additional complaints Resp Reports no additional complaints GI Denies abdominal pain, Denies belching, Denies melena, Denies bloating, Denies change in bowel habits, Denies dysphagia, Denies excessive flatus, Denies dyspepsia, Denies heartburn, Denies diarrhea, Denies loose stools, Denies nausea, Denies odynophagia and Denies vomiting Musc Reports no additional complaints Neuro Reports no additional complaints Psych Reports no additional complaints Endo Reports no additional complaints Physical Exam Vital Signs: Last Vital Signs Pulse 80 02/13/24 13:09 BP 156/75 H 02/13/24 13:09 BMI result Body Mass Index 32.6 Const General: healthy appearing and no acute distress Nutritional Appearance: obese Orientation/consciousness: patient oriented x3 Resp Effort & Inspection: normal respiratory effort, able to speak in complete sentences, no tracheal deviation and symmetric chest movement Auscultation: clear to auscultation bilaterally Cardio Rate: regular rate GI Inspection: Yes normal to inspection, No distended and Yes obesity Palpation (GI): Soft to palpation, not firm, nontender and No hepatosplenomegaly present Auscultation: normal bowel sounds General: Yes no CVA tenderness Back/Spine/Pelvis Back: no CVA tenderness Skin General skin exam: elasticity normal, turgor normal and dry skin Neuro General: patient oriented x3 Psych Appearance: grossly normal Mental Status: mental status grossly normal Assessment & Plan Assessment & Plan (1) Tubular adenoma of colon: Code(s): D12.6 - Benign neoplasm of colon, unspecified (2) Diverticulosis: Code(s): K57.90 - Diverticulosis of intestine, part unspecified, without perforation or abscess without bleeding (3) Status post colonoscopy: Code(s): Z98.890 - Other specified postprocedural states (4) Constipation: Code(s): K59.00 - Constipation, unspecified Qualifiers: Constipation type: slow transit constipation Qualified Code(s): K59.01 - Slow transit constipation Plan One tubular adenoma in the ascending colon without high-grade dysplasia or carcinoma. Asymptomatic colorectal screening recommended in 3 years, sooner if clinically necessary. High-fiber diet discussed with patient. List of food high in fiber given to patient. Patient reports occasional constipation. Patient can take MiraLax daily and call our office if it has not effective. Patient will follow-up in our office in 1 year, sooner on as needed basis. She is agreeable to this plan and verbalizes understanding of instructions. She was given the opportunity to ask questions and all questions answered. Thank you for allowing me to participate in her care Coding Level of Care Code Est Pt Level 3 (70286) Diagnoses Tubular adenoma of colon D12.6 Diverticulosis K57.90 Status post colonoscopy Z98.890 Slow transit constipation K59.01 Constipation type: slow transit constipation Time Spent (min) 30 Comment 20 minutes spent with patient and additional 10 minutes spent reviewing her records
[2024-02-13 13:09] VITALS: BP 156/75; PULSE 80; BMI 32.6
== END 2024-02-13 13:30 | disposition home or self-care (01) ==
PROVIDERS: PCP Internal Medicine; Visit Provider Nurse Practitioner Family
DX: D12.6 Benign neoplasm of colon, unspecified (principal); K57.90 Diverticulosis of intestine, part unspecified, without perforation or abscess without bleeding; Z98.890 Other specified postprocedural states; K59.01 Slow transit constipation
CPT/HCPCS: 99213

== ENCOUNTER → 2024-02-13 13:05 | Outpatient (BNVA) | payer OTHER, SELFPAY | PROVIDERS: PCP Internal Medicine; Visit Provider Nurse Practitioner Family | DX: D12.6 Benign neoplasm of colon, unspecified (principal); K57.90 Diverticulosis of intestine, part unspecified, without perforation or abscess without bleeding; K59.01 Slow transit constipation; Z98.890 Other specified postprocedural states | CPT/HCPCS: 99212 ==

== ENCOUNTER 2024-03-13 07:20 | Outpatient (REF) | payer OTHER, SELFPAY ==
--- NOTE | ~2024-03-13 | MR_ITS ---
EXAMINATION: MR SHOULDER WITHOUT CONTRAST, LEFT CLINICAL INFORMATION: Left shoulder pain. COMPARISON: Radiographs 02/10/2024. TECHNIQUE: MRI of the shoulder without contrast was performed on a high-field scanner. FINDINGS: ROTATOR CUFF: Mild ill-defined undersurface partial tearing of the distal supraspinatus tendon. Subscapularis tendinosis. The infraspinatus and teres minor tendons are intact. No muscle atrophy or fatty infiltration. BICEPS: Normal. CORACOACROMIAL ARCH: The undersurface of the acromion is curved with no subacromial spur. Mild acromioclavicular osteoarthritis. Mild subacromial subdeltoid bursitis. LABRUM/CAPSULE: No definite labral tear. GLENOHUMERAL JOINT/MARROW: Small marginal osteophytes along the glenoid rim. Degenerative marrow changes at the posterior aspect of the greater tuberosity. Trace joint effusion. Focal cartilage irregularity along the anterior glenoid rim. MR/MR shoulder LT wo con IMPRESSION: 1. Mild ill-defined undersurface partial tearing of the distal supraspinatus tendon. Subscapularis tendinosis. 2. Mild acromioclavicular and glenohumeral osteoarthritis.
== END 2024-03-13 07:21 | disposition home or self-care (01) ==
LOC: HO.MRI 07:20
PROVIDERS: PCP Internal Medicine; Visit Provider Orthopaedic Surgery
DX: M24.812 Other specific joint derangements of left shoulder, not elsewhere classified (principal)
CPT/HCPCS: 73221

== ENCOUNTER 2024-04-02 08:40 | Outpatient (AMB) | payer OTHER, SELFPAY ==
[2024-04-02 08:55] VITALS: BMI 32.4
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
== END 2024-04-02 09:10 | disposition home or self-care (01) ==
PROVIDERS: PCP Internal Medicine; Visit Provider Orthopaedic Surgery
DX: S46.011A Strain of muscle(s) and tendon(s) of the rotator cuff of right shoulder, initial encounter (principal)
CPT/HCPCS: 99213

== ENCOUNTER → 2024-04-02 08:40 | Outpatient (BNVA) | payer OTHER, SELFPAY | PROVIDERS: PCP Internal Medicine; Visit Provider Orthopaedic Surgery ==

== ENCOUNTER 2024-05-14 08:08 | Outpatient (AMB) | payer OTHER, SELFPAY ==
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
[2024-05-14 08:28] VITALS: BMI 32.4
== END 2024-05-14 08:58 | disposition home or self-care (01) ==
PROVIDERS: PCP Internal Medicine; Visit Provider Orthopaedic Surgery
DX: M75.102 Unspecified rotator cuff tear or rupture of left shoulder, not specified as traumatic (principal)
CPT/HCPCS: 99213

== ENCOUNTER → 2024-05-14 08:08 | Outpatient (BNVA) | payer OTHER, SELFPAY | PROVIDERS: PCP Internal Medicine; Visit Provider Orthopaedic Surgery ==

== ENCOUNTER 2024-07-05 10:31 | Outpatient (AMB) | payer OTHER, SELFPAY ==
--- NOTE | 2024-07-05 10:45 | MHC.OFFVIS ---
Vital Signs 07/05/24 11:00 Height 5 ft 3 in Weight 183 lb BMI 32.4 Handedness Right Intake Visit Reasons: Preop LT RTC repair 07/11/24 NE Intake Note: Apoorva is a 49 year old right hand dominant female who presents today for a pre op appointment for her LT RTC repair 07/11/24 NE. Certified Master Safe Technician Required: Yes Certified Master Safe Technician Language: Supervisor Vacuum [employer] Services: Certified Master Safe Technician Present (Panda ([id number])) Certified Master Safe Technician Name: JavonSOULEYMANE teran/SHI Information Interpreted: clinical only Allergies penicillin V Allergy (Intermediate, Verified 07/05/24 10:48) hives HPI HPI Preop LT RTC repair 07/11/24 NE: Details: 49-year-old right hand dominant female who presents in the office today for her preoperative history and physical exam prior to a left rotator cuff repair to be performed on 07/11/[address] Tremayne Coleman.? ? Patient has an allergy history, as follows:? -Penicillin; hives? ? Patient is currently taking, as follows:? -Cholecalciferol 50 mcg PO dailiy? -Hydrochlorothiazide 12.5 mg PO QAM? ? Patient has a medical history, as follows:? -Diverticulosis? -Tubular adenoma of colon? -Hyperlipidemia? -Low vitamin D level? -Obese; BMI of 32.4 as of 05/14/24.? -Essential hypertension? ? Patient has a surgical history, as follows:? -Hx of endometriosis? ? Patient has a social history, as follows:? 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 PF[employer] Medical History Diverticulosis Tubular adenoma of colon Upper back pain Pain of left scapula Pain of left clavicle Obese Essential hypertension Surgical History History of endometriosis Family History Father Hypertension Mother No problems noted. 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 Current occupational exposures/hazards: No Cognitive needs: No Hearing needs: No Vision needs: No Review of Systems Const All systems reviewed & are unremarkable except as noted in HPI and below Physical Exam Vital Signs: BMI result Body Mass Index 32.4 Const General: cooperative, healthy appearing, comfortable, no acute distress, well developed, alert and awake Orientation/consciousness: patient oriented x3 HEENT Head: Yes normal to inspection, Yes normocephalic and Yes atraumatic Eyes General: appearance normal, both eyes and all related structures Neck Neck: Yes normal visual inspection and Yes no lymphadenopathy Resp Effort & Inspection: normal respiratory effort and able to speak in complete sentences Cardio Rate: regular rate Peripheral pulses: Peripheral pulses 2+ throughout GI Inspection: Yes normal to inspection Palpation (GI): Soft to palpation Skin General skin exam: no rashes or lesions noted Neuro General: patient oriented x3 Extrem Other: 4/5 EC on the left Psych Mental Status: mental status grossly normal Assessment & Plan Assessment & Plan (1) Rotator cuff tear, left: Code(s): M75.102 - Unspecified rotator cuff tear or rupture of left shoulder, not specified as traumatic Category: Medical Plan Ms. Dewitt is a 49-year-old right hand dominant female who presents in the office today for her preoperative history and physical exam prior to a left rotator cuff repair to be performed on 07/11/[address] Tremayne Coleman.? ? Patient has an allergy history, as follows:? -Penicillin; hives? ? Patient is currently taking, as follows:? -Cholecalciferol 50 mcg PO dailiy? -Hydrochlorothiazide 12.5 mg PO QAM? ? Patient has a medical history, as follows:? -Diverticulosis? -Tubular adenoma of colon? -Hyperlipidemia? -Low vitamin D level? -Obese; BMI of 32.4 as of 05/14/24.? -Essential hypertension? ? Patient has a surgical history, as follows:? -Hx of endometriosis? ? Patient has a social history, as follows:? 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 ? I discussed in detail the procedure and what to expect pre and post operatively. We discussed the risks, benefits, alternatives to the surgery and the rehabilitation course. The risks include infection, bleeding, nerve injury, ongoing pain, swelling, and stiffness, perioperative risk of injury to bones and soft tissues, and blood clots.?? ? I have answered all questions and with their understanding they have consented to move forward with a left rotator cuff repair to be performed on 07/11/[address] Tremayne Coleman.? ? Post operative medications were sent to the pharmacy, oxycodone-acetaminophen 5-325 mg (Percocet) PO Q4-6H PRN, quantity 42 tabs for 7 days and morphine ER 15 mg (MS Contin) PO Q12H PRN, quantity 6 tabs for 3 days, while in the office today. The patient was instructed that she should obtain the prescription prior to surgery but should not consume until after the procedure; as these should only be taken for post operative pain management. Should the patient take these medications before surgery, a refill will not be sent to the pharmacy until their scheduled refill date.?? ? Follow-up will be at the post operative appointment on 07/23/24, or sooner if needed.?? Medications: New oxycodone-acetaminophen 5-325 mg Partial Fill upon patient request. 1 tab PO Q4-6H PRN 42 tabs 0RF pain 7 days morphine ER (MS Contin) Partial Fill upon patient request. 15 mg PO Q12H 6 tabs 0RF 3 days Patient Instructions: Scribed by Sandy Wilson medical imaging director, for Kathy Pickard PA-C on 07/05/2024 at 10:48 am, EST.? Coding Level of Care Code Global (77124) Diagnoses Rotator cuff tear, left M75.102
[2024-07-05 11:00] VITALS: BMI 32.4
== END 2024-07-05 11:17 | disposition home or self-care (01) ==
PROVIDERS: PCP Internal Medicine; Visit Provider Physician Assistant
DX: M75.102 Unspecified rotator cuff tear or rupture of left shoulder, not specified as traumatic (principal)
CPT/HCPCS: 99024

== ENCOUNTER → 2024-07-05 10:31 | Outpatient (BNVA) | payer OTHER, SELFPAY | PROVIDERS: PCP Internal Medicine; Visit Provider Physician Assistant ==

== ENCOUNTER 2024-07-11 07:25 | Day surgery (SDC) | payer OTHER, SELFPAY ==
[2024-07-09 13:04] VITALS: BMI 32.4
--- NOTE | 2024-07-10 12:20 | HO.ANESPROP2 ---
Documented by User: Asia Peters NP 07/10/24 12:20 HPI - Anesthesia Eval Consult details Narrative: 49yo F for Left Arthroscopic Rotator Cuff Repair PMFSH Active Problems Active Problems: All Active Problems Rotator cuff tear, left (Acute) Internal derangement of left shoulder (Acute) Physical exam (Acute) Hyperlipidemia (Acute) Elevated LFTs (Acute) Low vitamin D level (Acute) Adult general medical exam (Acute) Cervical cancer screening (Acute) Screening for colon cancer (Acute) Diarrhea (Acute) Diverticulosis (Acute) Tubular adenoma of colon (Acute) Upper back pain (Acute) Pain of left scapula (Acute) Pain of left clavicle (Acute) Obese (Acute) Essential hypertension (Acute) Past Medical History Medical History Diverticulosis Tubular adenoma of colon Upper back pain Pain of left scapula Pain of left clavicle Obese Essential hypertension Family History Family History Father Hypertension Mother No problems noted. 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 Current occupational exposures/hazards: No Cognitive needs: No Hearing needs: No Vision needs: No Meds Allergies Allergy/AdvReac Type Severity Reaction Status Date / Time penicillin V Allergy Intermediate hives Verified 07/11/24 08:16 Exam Height,Weight and Vital Signs: Height 5 ft 3 in Weight 83.007 kg Assessment and Plan Assessment Anesthesia Assessment: Chart Reviewed Final Anesthetic Review Family History of Problems with Anesthesia: No History of Problems with Anesthesia: No Documented by User: Mehnaz Valdez MD 07/11/24 09:33 [facility] Past Medical History Medical History Diverticulosis Tubular adenoma of colon Upper back pain Pain of left scapula Pain of left clavicle Obese Essential hypertension Family History Family History Father Hypertension Mother No problems noted. 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 Denies broken or loose teeth) Heart: RRR Lungs: CTAB Assessment and Plan Assessment Anesthesia Assessment: Anesthesia Plan Discussed and Chart Reviewed Final Anesthetic Review Family History of Problems with Anesthesia: No History of Problems with Anesthesia: No NPO: Yes ASA Class: II Final Preanesthetic Review: No Changes in Pt Med Stat, Meds/Allgs Chart Reviewed, Consent Obtained/Reviewed and Anes Risks/Benef Reviewed Patient Risk: Low Procedure Risk: Low Assessment/Block/Sedation in SS: Assess/Block/Sedation-SS Anesthetic Plan Anesthetic Plan: GA and Regional Block (Left brachial plexus block) Disposition: Standard PACU
[2024-07-11 08:29] VITALS: BMI 32.8
[2024-07-11 08:38] VITALS: BP 155/84; PULSE 51; RESP 15; TEMP 36.1; O2SAT 100
[2024-07-11] MEDS: Lactated Ringers 1,000 ML 100 ML IVCONT (08:56)
[2024-07-11 09:01] VITALS: BMI 32.8
--- NOTE | 2024-07-11 09:45 | MHC.SHP ---
Pre-Procedural Eval Section A - 24 Hr Update-Section A only Date of Service: 07/11/24 The patient is an INPATIENT: No Changes since office visit: No Cold of Flu in the past 2 weeks, No New Medical Problems, No Changes in Medication and No Patient answered all questions The patient has been examined within 24 hours of the surgical procedure. The History & Physical has been completed within 30 days and I have reviewed it.: Yes Section B - Complete if H&P > 30 days Chief Complaint: Unspecified rotator cuff tear or rupture of left Allergies: Allergies Allergy/AdvReac Type Severity Reaction Status Date / Time penicillin V Allergy Intermediate hives Verified 07/11/24 08:16 Plan I have reviewed the history and physical and performed a pertinent physical examination on my patient. No changes have occurred unless specified. Time Spent With Patient Time: Total time managing care of this patient today ____ minutes.
--- NOTE | 2024-07-11 11:16 | PM.OP ---
Brief Operative Note Date of Service: 07/11/24 Pre-op diagnosis: Left RTC tear Post-op diagnosis: same Procedure: Left RTC repair Implants: Salamanca and Nephew 4.75 double loaded Helacoil and 5,0 knotless helacoil x 2 Surgeon: Tremayne Coleman MD Anesthesia: GETA and regional Was an Golf Shoe Spike Assembler used for this Procedure?: Yes Golf Shoe Spike Assembler: Kathy Pickard Estimated blood loss (mL): 25 IV fluids (mL): 780 Pathology: none sent Condition: stable Disposition: PACU
[2024-07-11 11:34] VITALS: BP 147/100; PULSE 83; RESP 14; TEMP 36.6; O2SAT 95
[2024-07-11 11:39] VITALS: BP 135/88; PULSE 71; RESP 14; O2SAT 95
[2024-07-11 11:44] VITALS: BP 141/96; PULSE 85; RESP 16; O2SAT 97
[2024-07-11 11:51] VITALS: BP 135/91; PULSE 74; RESP 16; O2SAT 98
[2024-07-11 12:06] VITALS: BP 142/99; PULSE 67; RESP 16; TEMP 36.6; O2SAT 96
--- NOTE | 2024-07-18 09:41 | P.OP_ITS ---
Operative Note Operative Note Date of Service: 07/11/24 Narrative: Date of Service: 07/11/24 Pre-op diagnosis: Left RTC tear Post-op diagnosis: same Procedure: Left RTC repair Implants: Salamanca and Nephew 4.75 double loaded Helacoil and 5,0 knotless helacoil x 2 Surgeon: Tremayne Coleman MD Anesthesia: GETA and regional Was an Assembly Detailer used for this Procedure?: Yes Assembly Detailer: Kathy Pickard Estimated blood loss (mL): 25 IV fluids (mL): 780 Pathology: none sent Condition: stable Disposition: PACU Procedure in detail: Patient was brought to the operating room and placed the the beach chair position. All bony prominences were well padded and the limb was prepped and draped in standard sterile fashion. A time out was called to identify proper site, proper procedure and proper surgeon. IV antibiotics per weight were administered. I began by making a posterolateral stab incision with a 15 blade. A blunt trochar was placed into the glenohumeral joint and I insufflated the joint with saline and a 30 degree arthroscope was placed. I established an outside- in anterior portal just distal to the biceps tendon. I then began my inspection of the glenohumeral joint. There was a intact biceps anchor with anterior interval synovitis. There were minimal cartilage changes at the inferior glenoid without humeral head changes. There was a full thickness undersurface RTC tear. The subcapularis was intact. I debrided the loose cartilage of the glenoid and the degenerative labral tearing with a cautery wand. I then removed the trochar and entered the subacromial space. A direct lateral portal was then established and I performed a bursectomy. The cuff was then examined. There was a full thickness tear of the supraspinatus without retraction. The tear was mobile. I used a shaver to debride unhealthy tissue and then I placed one medial row double loaded anchor after using a tap just adjacent to the articular cartilage and then brought the suture limbs ( 4) through the medial cuff. I added a looped suture anterior and posterior and brought these 6 limbs intt 2 lateral anchors. Prior to this I debrided the bare area down to bleeding bone using a small spherical chaitanya and then, using a cross bridge configuration, brought the 6 limbs to each of two lateral 5.0 anchors. This re-approximated the cuff anatomically. I then performed a 5 mm anterior subacromial decompression with an oval chaitanya. Once I was satisfied with the repair final images were captured and I removed all instrumentation. Portals were closed with nylon. Patient was placed in an abduction sling, extubated and brought to the recovery room in stable condition. There were no known complications.
== END 2024-07-11 13:16 | disposition home or self-care (01) ==
PROVIDERS: PCP Internal Medicine; Visit Provider Orthopaedic Surgery
PROC: (CPT 29827; principal; 2024-07-11 09:30)
DX: M75.102 Unspecified rotator cuff tear or rupture of left shoulder, not specified as traumatic (principal); M65.812 Other synovitis and tenosynovitis, left shoulder; I10 Essential (primary) hypertension; E78.5 Hyperlipidemia, unspecified; E55.9 Vitamin D deficiency, unspecified; E66.9 Obesity, unspecified; Z68.32 Body mass index [BMI] 32.0-32.9, adult; K57.30 Diverticulosis of large intestine without perforation or abscess without bleeding; Z79.899 Other long term (current) drug therapy; Z88.0 Allergy status to penicillin
CPT/HCPCS: 29827; 29826; C1713; J0131; J0665; J0736; J1100; J2250; J2405; J2704; J3010

== ENCOUNTER → 2024-07-11 07:25 | Outpatient (BNV) | payer OTHER, SELFPAY | PROVIDERS: PCP Internal Medicine; Visit Provider Orthopaedic Surgery | DX: S46.011A Strain of muscle(s) and tendon(s) of the rotator cuff of right shoulder, initial encounter (principal); Z04.3 Encounter for examination and observation following other accident | CPT/HCPCS: 29827 ==

== ENCOUNTER 2024-07-19 07:40 | Outpatient (AMB) | payer OTHER, SELFPAY ==
--- NOTE | 2024-07-19 07:54 | A.OFFPC_ITS ---
Vital Signs 07/19/24 07:55 Height 5 ft 3 in Weight 182 lb BMI 32.2 BP 132/86 Blood Pressure Location Lt brachial Position Sitting Intake Visit Reasons: bp Intake Note: Patient here for a follow up BP Ripening Room Attendant Required: No Accompanied by: Self / Same As Patient Allergies penicillin V Allergy (Intermediate, Verified 07/19/24 08:06) hives Medication List - Last Reconciled 07/19/24 by Collette Carrillo MD cholecalciferol (vitamin D3) 50 mcg PO DAILY hydrochlorothiazide 12.5 mg PO QAM morphine ER (MS Contin) 15 mg PO Q12H 3 days oxycodone-acetaminophen 5-325 mg 1 tab PO Q4-6H PRN 7 days Tobacco use date assessed: 01/19/24 Dental Screening Dental Screen Date: 01/19/24 HPI HPI Comments History of Present Illness Details This is a 49-year-old female with hypertension and low vitamin-D that comes today for follow-up on her conditions. Blood pressure has been stable. Had recent surgery repair of her left rotator cuff and is recovering well. Denies any chest pain or shortness on breath. Compliant with medications. [facility] Medical History Diverticulosis Tubular adenoma of colon Upper back pain Pain of left scapula Pain of left clavicle Obese Essential hypertension Surgical History Rotator cuff tear, left History of gynecologic surgery H/O colonoscopy Family History Father Hypertension Mother No problems noted. 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 Luis Manuel L. LanreKavya singletary, Gerry Becerra and colleagues, with an educational norah from [employer]. Review of Systems Const All systems reviewed & are unremarkable except as noted in HPI and below Card Denies chest pain at rest, Denies chest pain with activity, Denies edema, Denies irregular heart rhythm, Denies claudication, Denies dyspnea, Denies dyspnea on exertion, Denies orthopnea, Denies paroxysmal nocturnal dyspnea and Denies slow heart rate Resp Denies cough, Denies dyspnea and Denies dyspnea on exertion Physical exam (Primary Care) Vital Signs: Last Vital Signs BP 132/86 07/19/24 07:55 BMI result Body Mass Index 32.2 Tobacco/Smoking Status: Tobacco use Status Tobacco use date assessed 01/19/24 07/19/24 08:00 Patient Tobacco Use Status Never used Tobacco 07/19/24 08:00 e-Cigarette/Vaping Use Never Used 07/19/24 08:00 Thrive Assessment: Date of Thrive Assessment Date Thrive assessed 01/19/24 07/19/24 08:00 Resp Effort & Inspection: normal respiratory effort Auscultation: clear to auscultation bilaterally Cardio Jugular venous distension: no JVD Rate: regular rate Rhythm: regular rhythm Heart sounds: S1 normal heart sound present and S2 normal heart sound present Assessment and Plan Assessment & Plan (1) Essential hypertension: Code(s): I10 - Essential (primary) hypertension Plan: Continue hydrochlorothiazide. Blood pressure goal is equal or less than 130/80. (2) Low vitamin D level: Code(s): R79.89 - Other specified abnormal findings of blood chemistry Plan: Continue vitamin-D supplements. Orders: Orders Lipid Panel 6 Months E78.5 - Hyperlipidemia, unspecified Comprehensive [place]. Panel Fast 6 Months I10 - Essential (primary) hypertension Vitamin D 25-OH Total 6 Months E55.9 - Vitamin D deficiency, unspecified Coding Level of Care Code Est Pt Level 3 (38099) Complex EM visit Add On G2211 Diagnoses Essential hypertension I10 Low vitamin D level R79.89 Time Spent (min) 19
[2024-07-19 07:55] VITALS: BP 132/86; BMI 32.2
== END 2024-07-19 08:12 | disposition home or self-care (01) ==
PROVIDERS: PCP Internal Medicine; Visit Provider Internal Medicine
DX: I10 Essential (primary) hypertension (principal); R79.89 Other specified abnormal findings of blood chemistry
CPT/HCPCS: 99213; G2211

== ENCOUNTER 2024-07-23 09:34 | Outpatient (AMB) | payer OTHER, SELFPAY ==
--- NOTE | 2024-07-23 09:59 | MHC.OFFVIS ---
Intake Visit Reasons: PO LT RTC repair 07/11/24 NE Intake Note: Apoorva is a 49 year old right hand dominant female who presents today for a pre op appointment for her LT RTC repair 07/11/24 NE. Patient reports she is doing well, however she is having some soreness. She mentions that she has been working on her pendulum exercises. Probation Supervisor Required: Yes Probation Supervisor Language: Peanut Shaker Services: Probation Supervisor Present (Denys ([id number])) Information Interpreted: clinical only Allergies penicillin V Allergy (Intermediate, Verified 07/23/24 10:02) hives HPI HPI PO LT RTC repair 07/11/24 NE: Details: 49-year-old right hand dominant female, who is?Bangladeshi speaking, presents in the office today 12 days status post left shoulder rotator cuff repair, which was performed on 07/11/[address] Coleman. ? ? While in the office today, the patient reports she is doing well but does have some soreness. She also confirms working on the pendulum exercises.? [facility] Medical History Diverticulosis Tubular adenoma of colon Upper back pain Pain of left scapula Pain of left clavicle Obese Essential hypertension Surgical History (Updated 07/23/24 @ 10:08 by Sandy Wilson) S/P left rotator cuff repair Rotator cuff tear, left History of gynecologic surgery H/O colonoscopy Family History Father Hypertension Mother No problems noted. 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 Sutures are intact. No surrounding erythema or drainage. No signs of infection. Forward flexion and abduction to 45 degrees. External rotation to neutral. NVI. Assessment & Plan Assessment & Plan (1) S/P left rotator cuff repair: Comment: 07/11/24 NE Code(s): Z98.890 - Other specified postprocedural states Category: Surgical Plan Ms. Dewitt is a 49-year-old right hand dominant female, who is?Bangladeshi speaking, presents in the office today 12 days status post left shoulder rotator cuff repair, which was performed on 07/11/[address] Coleman. ? ? While in the office today, the patient reports she is doing well but does have some soreness. She also confirms working on the pendulum exercises.? ? Sutures were removed and steri-stripes were applied. The patient will remain in the sling until six weeks post-op. Follow-up will be in four weeks with Dr. Coleman, or sooner if needed. ? Orders: Orders PT Evaluation and Treatment Today Z98.890 - Other specified postprocedural states Patient Instructions: Scribed by Sandy Wilson medical record retrieval specialist, for Kathy Pickard PA-C on 07/23/2024 at 9:37 am, EST.? Coding Level of Care Code Global (05677) Diagnoses S/P left rotator cuff repair Z98.890
== END 2024-07-23 10:22 | disposition home or self-care (01) ==
PROVIDERS: PCP Internal Medicine; Visit Provider Physician Assistant
DX: Z98.890 Other specified postprocedural states (principal)
CPT/HCPCS: 99024

== ENCOUNTER → 2024-07-23 09:34 | Outpatient (BNVA) | payer OTHER, SELFPAY | PROVIDERS: PCP Internal Medicine; Visit Provider Physician Assistant | DX: Z98.890 Other specified postprocedural states (principal) | CPT/HCPCS: 99212 ==

== ENCOUNTER 2024-08-20 10:11 | Outpatient (AMB) | payer OTHER, SELFPAY ==
--- NOTE | 2024-08-20 10:17 | A.OFFVIS_ITS ---
Vital Signs 08/20/24 10:18 Height 5 ft 3 in Weight 182 lb BMI 32.2 Intake Visit Reasons: PO LT RTC repair 07/11/24 NE Intake Note: Apoorva is a 49 year old right hand dominant female who presents today for a pre op appointment for her LT RTC repair 07/11/24 NE. Allergies penicillin V Allergy (Intermediate, Verified 08/20/24 10:20) hives HPI HPI PO LT RTC repair 07/11/24 NE: Details: Six weeks status post left rotator cuff repair. She is doing okay. She has worked with physical therapy. She has been using her sling. [facility] Medical History Diverticulosis Tubular adenoma of colon Upper back pain Pain of left scapula Pain of left clavicle Obese Essential hypertension Surgical History (Updated 07/23/24 @ 10:08 by Sandy Wilson) S/P left rotator cuff repair Rotator cuff tear, left History of gynecologic surgery H/O colonoscopy Family History Father Hypertension Mother No problems noted. 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 Continue physical therapy. She may discontinue her sling. Follow up 6 weeks. Coding Level of Care Code Global (49243) Diagnoses S/P left rotator cuff repair Z98.890
[2024-08-20 10:18] VITALS: BMI 32.2
== END 2024-08-20 10:52 | disposition home or self-care (01) ==
PROVIDERS: PCP Internal Medicine; Visit Provider Orthopaedic Surgery
DX: Z98.890 Other specified postprocedural states (principal)
CPT/HCPCS: 99024

== ENCOUNTER → 2024-08-20 10:11 | Outpatient (BNVA) | payer OTHER, SELFPAY | PROVIDERS: PCP Internal Medicine; Visit Provider Orthopaedic Surgery | DX: Z47.89 Encounter for other orthopedic aftercare (principal); Z98.890 Other specified postprocedural states | CPT/HCPCS: 99212 ==

== ENCOUNTER 2024-10-01 08:33 | Outpatient (AMB) | payer OTHER, SELFPAY ==
[2024-10-01 08:35] VITALS: BMI 32.2
--- NOTE | 2024-10-01 08:35 | A.OFFVIS_ITS ---
Vital Signs 10/01/24 08:35 Height 5 ft 3 in Weight 182 lb BMI 32.2 Intake Visit Reasons: PO LT RTC repair 07/11/24 NE Intake Note: Apoorva is a 49 year old right hand dominant female who presents today for a post operative appointment s/p LT RTC repair 07/11/24 NE Allergies penicillin V Allergy (Intermediate, Verified 10/01/24 08:47) hives HPI HPI PO LT RTC repair 07/11/24 NE: Details: Apoorva is a 49 year old right hand dominant female who presents today for a post operative appointment s/p LT RTC repair 07/11/24 NE. She has some continued stiffness but this is improving. She is working with physical therapy. She is taking Aleve if necessary for pain. [facility] Medical History Diverticulosis Tubular adenoma of colon Upper back pain Pain of left scapula Pain of left clavicle Obese Essential hypertension Surgical History S/P left rotator cuff repair Rotator cuff tear, left History of gynecologic surgery H/O colonoscopy Family History Father Hypertension Mother No problems noted. 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 Continue physical therapy at. Follow up 3 months. Plan Follow up in 3 months Coding Level of Care Code Global (38270) Diagnoses S/P left rotator cuff repair Z98.890
== END 2024-10-01 09:14 | disposition home or self-care (01) ==
LOC: HO.HOS 08:33
PROVIDERS: PCP Internal Medicine; Visit Provider Orthopaedic Surgery
DX: Z98.890 Other specified postprocedural states (principal)
CPT/HCPCS: 99024

== ENCOUNTER → 2024-10-01 08:33 | Outpatient (BNVA) | payer OTHER, SELFPAY | PROVIDERS: PCP Internal Medicine; Visit Provider Orthopaedic Surgery | DX: Z47.89 Encounter for other orthopedic aftercare (principal) | CPT/HCPCS: 99212 ==

== ENCOUNTER 2024-12-25 08:16 | Outpatient (REF) | payer OTHER, SELFPAY ==
--- OUTSIDE RECORDS SUMMARY | 2024-12-25 08:37 | XMS_ITS | Clinical Summary ---
Author Organization [facility] it Address [address] [place] [address] Care Team Providers Care Cable Television Line Technician Name Role Phone Thomas Fish MD Primary Care Provider Surgical History Surgery Date Site/Laterality Comments OTHER SURGICAL HISTORY PROCEDURE: [place] LAPS FULG/EXC OVARY VISCERA/PERITONEAL SURFACE; COMMENT: right ovary removed, part of left ovary removed Family History Medical History Relation Name Comments Colon cancer Sister ? Breast cancer Neg Hx Relation Name Status Comments Sister Alive Social History Tobacco Use Types Packs/Day Years Used Date Smoking Tobacco: Never Smokeless Tobacco: Never Alcohol Use Standard Drinks/Week Comments Not Currently 0 (1 standard drink = 0.6 oz pur e alcohol) Sex and Gender Information Value Date Recorded Sex Assigned at Not on file Gender Identity Not on file Sexual Orientation Not on file Obstetrics History Last Filed Vital Signs Vital Sign Reading Time Taken Comments Blood Pressure 132/72 03/30/2023 1:57 PM EDT Pulse 55 03/30/2023 1:57 PM EDT Temperature - - Respiratory Rate - - Oxygen Saturation - - Inhaled Oxygen Concentration - - Weight 83.1 kg (183 lb 3.2 oz) 03/30/2023 1:57 P M EDT Height 160 cm (5' 3 ) 03/30/2023 1:57 PM EDT Body Mass Index 32.45 03/30/2023 1:57 PM EDT Plan of Treatment Health Maintenance Due Date Last Done Comments Breast Cancer Screening 1973 DTaP,Tdap,and Td Vaccines (1 - Tdap) 1992 Hepatitis B Vaccines (1 of 3 - 19+ 3-dose series) 1992 Zoster Vaccines (1 of 2) 2023 Colorectal Cancer Screening: Colonoscopy 12/27/2023 Depression Screening 12/27/2023 HIV Screening 12/27/2023 Hepatitis C Screening 12/27/2023 Social Influencers of Health Screening 12/27/2023 COVID-19 Vaccine (2023-2 5 season) 2024 Influenza Vaccine (#1) 2024 Cervical Cancer Screening: P ap Smear 03/30/2026 03/30/2023 HIB Vaccines Aged Out No longer eligi ble based on patient's age to complete this topic HPV Vaccines Aged Out No longer eligi ble based on patient's age to complete this topic Hepatitis A Vaccines Aged Out No long er eligible based on patient's age to complete this topic IPV Vaccines Aged Out No longer eligi ble based on patient's age to complete this topic MMR Vaccines Aged Out No longer eligi ble based on patient's age to complete this topic Meningococcal ACWY Vaccine Aged Out N o longer eligible based on patient's age to complete this topic Pneumococcal Vaccine: Pediat rics (0 to 5 Years) and At-Risk Patients (6 to 64 Years) Aged Out No longer eligi ble based on patient's age to complete this topic RSV Immunization Patients Un angelina 20 months Aged Out No longer eligible b ased on patient's age to complete this topic Varicella Vaccines Aged Out No longer eligible based on patient's age to complete this topic Procedures Procedure Name Priority Date/Time Associated Diagnosis Comments PAP SMEAR Routine 03/30/2023 from Last 3 Months or Most Recently Relevant to Health Maintenance Results * Pap smear (03/30/2023) 03/30/2023 Narrative HISTORICAL TESTING LAB RESULTING AGENCY - 04/05/2023 12:55 PM EDT [id number] THINPREP PAP, IMAGED: NEGATIVE FOR SQUAMOUS INTRAEPITHELIAL LESION AND MALIGNANCY . INFLAMMATORY CHANGES ARE PRESENT. ELVER SOLIS([facility]) (CASE ELECTRONICALLY SIGNED 04 05 2023) RESULT OF APTIMA HIGH RISK HPV ASSAY: HIGH RISK HPV: ??NEGATIVE (SEROTYPES 16,18,31,33,35,39,45,51,52,56,58,59,66,68) COMPLETED ON 2023-03-31 ADEQUACY: SATISFACTORY ENDOCERVICAL/TRANSFORMATION ZONE COMPONENT PRESENT. SOURCE: THINPREP PAP HPV ANY DX: ??REFLEX 16 AND 18, CERVICAL, IMAGED CLINICAL INFORMATION: HPV ANY DIAGNOSIS. HORMONES, [Z12.4] Paulina Natarajan DO LAB CYTOLOGY ORDERAB LES HISTORICAL TESTING LAB RESULTING AGENCY from Last 3 Months or Most Recently Relevant to Health Maintenance Care Teams Cable Television Line Technician Relationship Specialty Start Date End Date Thomas Fish MD [address] [address] PCP - General Internal Medicine 10/11/17
== END 2024-12-25 08:17 | disposition home or self-care (01) ==
LOC: HO.MAMMO 08:16
PROVIDERS: PCP Internal Medicine; Visit Provider Internal Medicine
DX: Z12.31 Encounter for screening mammogram for malignant neoplasm of breast (principal)
CPT/HCPCS: 77063; 77067

== ENCOUNTER → 2025-01-03 08:12 | Outpatient (AMB) | payer OTHER, SELFPAY ==
--- OUTSIDE RECORDS SUMMARY | 2025-01-03 08:15 | XMS_ITS | Clinical Summary ---
Author Organization [facility] it Address [address] [place] [address] Care Team Providers Care Human Resources Analyst Name Role Phone Thomas Fish MD Primary Care Provider Surgical History Surgery Date Site/Laterality Comments OTHER SURGICAL HISTORY PROCEDURE: [place] LAPS FULG/EXC OVARY VISCERA/PERITONEAL SURFACE; COMMENT: right [...] RESULTING AGENCY - 04/05/2023 12:55 PM EDT [id number] THINPREP PAP, IMAGED: NEGATIVE FOR SQUAMOUS INTRAEPITHELIAL LESION AND MALIGNANCY . INFLAMMATORY CHANGES ARE PRESENT. ELVER SOLIS([facility]) (CASE ELECTRONICALLY SIGNED 04 05 2023) RESULT [...] Recently Relevant to Health Maintenance Care Teams Human Resources Analyst Relationship Specialty Start Date End Date Thomas Fish MD [address] [address] PCP - General Internal Medicine 10/11/17
--- NOTE | 2025-01-03 08:19 | A.OFFVIS_ITS ---
Vital Signs 01/03/25 08:19 Height 5 ft 3 in Weight 182 lb BMI 32.2 Intake Visit Reasons: OV - LT RTC repair 07/11/24 NE Intake Note: Apoorva is a 49 year old right hand dominant female who presents today for a follow up of her right shoulder s/p Right Rotator Cuff Repair 07/11/24. At her last visit she had some stiffness with minimal pain - was instructed to continue PT, which she has with [facility]. Patient reports that she is having pain in the upper arm but the shoulder is not painful. She has limisted ROM above shoulder height. Allergies penicillin V Allergy (Intermediate, Verified 01/03/25 08:23) hives HPI HPI OV - LT RTC repair 07/11/24 NE: Details: Apoorva is a 49 year old right hand dominant female who presents today for a follow up of her right shoulder s/p Right Rotator Cuff Repair 07/11/24. At her last visit she had some stiffness with minimal pain - was instructed to continue PT. Patient reports that she is having pain in the upper arm but the shoulder is not painful. She has limisted ROM above shoulder height. She is able to lift 3 lb but when she does any heavy or weight she starts to have pain. She has not returned to work. [facility] Medical History Diverticulosis Tubular adenoma of colon Upper back pain Pain of left scapula Pain of left clavicle Obese Essential hypertension Surgical History S/P left rotator cuff repair Rotator cuff tear, left History of gynecologic surgery H/O colonoscopy Family History Father Hypertension Mother No problems noted. 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 She is doing well with still some stiffness and pain with lifting. I recommend she continue out of work until she is 100% as her work requires lifting. I will see her back in 3 months' time. At this point I anticipate she would return to work. She is continuing physical therapy and I have written a prescription to do so. Orders: Orders PT Evaluation and Treatment Today Z98.890 - Other specified postprocedural states Coding Level of Care Code Est Pt Level 3 (64571) Diagnoses S/P left rotator cuff repair Z98.890
== END | disposition home or self-care (01) ==
PROVIDERS: PCP Internal Medicine; Visit Provider Orthopaedic Surgery
CPT/HCPCS: 99213

== ENCOUNTER → 2025-01-03 08:12 | Outpatient (BNVA) | payer OTHER, SELFPAY | PROVIDERS: PCP Internal Medicine; Visit Provider Orthopaedic Surgery | DX: Z47.89 Encounter for other orthopedic aftercare (principal); Z98.890 Other specified postprocedural states | CPT/HCPCS: 99212 ==

== ENCOUNTER 2025-01-12 08:30 | Outpatient (REF) | payer OTHER, SELFPAY ==
--- OUTSIDE RECORDS SUMMARY | 2025-01-12 08:32 | XMS_ITS | Clinical Summary ---
Author Organization [employer] [facility] it Address [address] [place] [address] Care Team Providers Care Hose Turner Name Role Phone Thomas Fish MD Primary Care Provider Surgical History Surgery Date Site/Laterality Comments OTHER SURGICAL HISTORY PROCEDURE: [place] LAPS FULG/EXC OVARY VISCERA/PERITONEAL SURFACE; COMMENT: right [...] drink = 0.6 oz pur e alcohol) Comments Unknown Sex and Gender Information Value Date Recorded Sex Assigned at Not on file Legal Sex Female 2:32 PM EST Gender Identity Not on file Sexual Orientation [...] of 3 - 19+ 3-dose series) 1992 Pneumococcal Vaccine: 50+ Ye ars (1 of 1 - PCV) 2023 Zoster Vaccines (1 of 2) 2023 Colorectal Cancer Screening: Colonoscopy 12/27/2023 Depression Screening 12/27/2023 HIV Screening 12/27/2023 Hepatitis C Screening 12/27/2023 Social Influencers of Health Screening 12/27/2023 COVID-19 Vaccine (1 - 2023-2 5 season) 2024 Influenza Vaccine (#1) 2024 [...] patient's age to complete this topic Meningococcal B Vacine Aged Out No lo nger eligible based on patient's age to complete [...] RESULTING AGENCY - 04/05/2023 12:55 PM EDT [id number] THINPREP PAP, IMAGED: NEGATIVE FOR SQUAMOUS INTRAEPITHELIAL LESION AND MALIGNANCY . INFLAMMATORY CHANGES ARE PRESENT. ELVER SOLIS(ASCP) (CASE ELECTRONICALLY SIGNED 04 05 2023) RESULT OF APTIMA HIGH RISK HPV ASSAY: HIGH RISK HPV: ??NEGATIVE (SEROTYPES 16,18,31,33,35,39,45,51,52,56,58,59,66,68) COMPLETED ON 2023-03-31 ADEQUACY: SATISFACTORY ENDOCERVICAL/TRANSFORMATION ZONE COMPONENT PRESENT. SOURCE: THINPREP PAP HPV ANY DX: ??REFLEX 16 AND 18, CERVICAL, IMAGED CLINICAL INFORMATION: HPV ANY DIAGNOSIS. HORMONES, [Z12.4] Paulina Natarajan DO LAB CYTOLOGY ORDERABLES Final Result HISTORICAL TESTING LAB RESULTING AGENCY from Last 3 Months or Most Recently Relevant to Health Maintenance Care Teams Hose Turner Relationship Specialty Start Date End Date Thomas Fish MD [address] [place] [address] PCP - General Internal Medicine 10/11/17
[2025-01-12 11:49] LABS: Alanine Aminotransferase 39 U/L (0-31); Albumin Level 4.3 g/dL (3.5-5.0); Alkaline Phosphatase 86 U/L (39-117); Anion Gap 11 (12-20); Aspartate Amino Transferase 44 U/L (5-31); Bilirubin Total 0.7 mg/dL (0.0-1.0); Blood Urea Nitrogen 15 mg/dL (9-16); Calcium 9.7 mg/dL (8.4-10.2); Carbon Dioxide 29 mmol/L (22-29); Chloride 105 mmol/L (96-108); Cholesterol 230 mg/dL (<200); Estimated Glomerular Filt Rate > 60; Glucose Fasting 90 mg/dL (60-99); HDL Cholesterol 44 mg/dL (>40); LDL Cholesterol Calculated 160 mg/dL (<100); Potassium 3.3 mmol/L (3.3-5.1); Sodium 142 mmol/L (135-145); Total Protein 8.5 g/dL (6.5-8.0); Triglycerides 132 mg/dL (<150)
[2025-01-12 12:06] LABS: Vitamin D 25-OH Total 49.1 ng/mL (>30)
== END 2025-01-12 08:31 | disposition home or self-care (01) ==
LOC: HO.HMGCLDS 08:30
PROVIDERS: PCP Internal Medicine; Visit Provider Internal Medicine
DX: I10 Essential (primary) hypertension (principal); E78.5 Hyperlipidemia, unspecified; E55.9 Vitamin D deficiency, unspecified
CPT/HCPCS: 36415; 80053; 80061; 82306

== ENCOUNTER 2025-01-23 08:17 | Outpatient (AMB) | payer OTHER, SELFPAY ==
[2025-01-23 08:24] VITALS: BP 118/78; PULSE 80; O2SAT 99; BMI 33.3
--- NOTE | 2025-01-23 08:24 | A.OFFPC_ITS ---
Vital Signs 01/23/25 08:24 Height 5 ft 3 in Weight 188 lb BMI 33.3 BP 118/78 Blood Pressure Location Lt brachial Position Sitting Pulse 80 Pulse Source Pulse Oximeter Pulse Oximetry (%) 99 Oxygen Delivery Method Room Air Intake Visit Reasons: Annual Exam Certified Hearing Instrument Dispenser Required: No Accompanied by: Self / Same As Patient Allergies penicillin V Allergy (Intermediate, Verified 01/23/25 08:47) hives Medication List - Last Reconciled 01/23/25 by Collette Carrillo MD cholecalciferol (vitamin D3) 50 mcg PO DAILY hydrochlorothiazide 12.5 mg PO QAM Tobacco use date assessed: 01/23/25 Dental Screening Dental Screen Date: 01/23/25 Did you have a dental visit in the last 12 months?: Yes Did you have a dental problem in the last 6 months where you did not have access to dental care?: No Was dental information given to patient?: Patient has dentist HPI HPI Comments History of Present Illness Details The patient is a 49-year-old female presenting with a primary interest in her annual wellness examination. She maintains a history of essential hypertension managed with hydrochlorothiazide, with noted compliance and involvement in physical activities to support her health. Hyperlipidemia was identified, with the patient's most recent cholesterol level recorded at 230 mg/dL and a calculated [place] risk of 1.8%. Dietary excesses have been implicated in the elevated cholesterol levels. She has a significant history of surgical management of a left rotator cuff tear from a work incident, with ongoing restricted mobility leading to temporary disability leave. The patient continues rehabilitation therapy to improve functional use of the arm. Her gastrointestinal surveillance includes a history of adenomatous polyps, with continued follow-up as advised following a prior colonoscopy. She has undergone surgery for endometriosis, with normal recent gynecological examination findings. The patient notes a vital history of penicillin allergy, ongoing medication with Vitamin D, and remains updated on tetanus immunization due to a previous injury. - Pap smear normal (last year) - Colonoscopy last year with adenomatous polyps; colonoscopy follow-up as w arranted - Tetanus immunization current, administ ered approximately 3 years ago - Discussed and recommended flu vaccine, which the patient declined - Hyperlipidemia with cholesterol at 230 mg/dL, lifestyle modifications suggested; CV risk calculated at 1.8% - Physical activity encouraged for hyper tension management and post-surgical arm rehabilitation COUNT INCLUDES THE [facility] Medical History (Updated 02/26/25 @ 09:02 by Collette Carrillo MD) Diverticulosis Tubular adenoma of colon Upper back pain Pain of left scapula Pain of left clavicle Obese Essential hypertension Surgical History S/P left rotator cuff repair Rotator cuff tear, left History of gynecologic surgery H/O colonoscopy Family History Father Hypertension Mother No problems noted. 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 1. Little interest or pleasure in doing things: not at all 2. Feeling down, depressed, or hopeless: not at all 3. Trouble falling or staying asleep, or sleeping too much: not at all 4. Feeling tired or having little energy: not at all 5. Poor appetite or overeating: not at all 6. Feeling bad about yourself - or that you are a failure or have let yourself or your family down: not at all 7. Trouble concentrating on things, such as reading the newspaper or watching television: not at all 8. Moving or speaking so slowly that other people could have noticed. Or the opposite - being so fidgety or restless that you have been moving around a lot more than usual: not at all 9. Thoughts that you would be better off or of hurting yourself in some way: not at all Total score: 0 Depression Screening Interpretation: Negative Depression Screening Done: Yes 28455 - PHQ-9 Billing: Yes Source: Developed by Drs. Luis Manuel De Dios, Kavya Dey, Gerry Becerra and colleagues, with an educational norah from [employer]. Thrive Questionnaire Date Thrive assessed: 01/16/25 I am a: Patient What is your living situation today?: I have a steady place to live Within the past 12 months, did the food you bought not last and you didn't have the money to get more?: I choose not to answer this question Within the past 12 months, did you worry whether your food would run out before you got money to buy more?: Never true Do you have trouble paying for medicines?: No Do you have trouble getting transportation to medical appointments?: No Do you have trouble paying your heating and electricity bill?: No Do you have trouble taking care of your child, family member or friend?: No Do you have trouble with day-to-day activities such as bathing, preparing meals, shopping, managing finances, etc.?: I choose not to answer this question Are you currently unemployed and looking for a job?: No Are you interested in more education?: No Please select the resources that you would like help with: None Currently or been in a relationship where the following occur: No concerns reported THRIVE Score: 0 AUDIT C Alcohol Use Questionnaire (AUDIT-C) 1. How often do you have a drink containing alcohol?: Never 3. How often do you have six or more drinks on one occasion?: Never Total Score: 0 ONDINA-7 AMB Questionnaire ONDINA-7 Date ONDINA - 7 assessed: 01/19/24 Feeling nervous, anxious, or on edge: 0 = Not at all Not being able to stop or control worryin = Not at all Worrying too much about different things: 0 = Not at all Trouble relaxin = Not at all Being so restless that it is hard to sit still: 0 = Not at all Becoming easily annoyed or irritable: 0 = Not at all Feeling afraid as if something awful might happen: 0 = Not at all Total ONDINA-7 score (0-4 normal; 5-9 mild; 10-14 moderate; 15-21 severe): 0 Source: Developed by Drs. Luis Manuel De Dios, Kavya Dey, Gerry Becerra and colleagues, with an educational norah from [employer]. Review of Systems Const All systems reviewed & are unremarkable except as noted in HPI and below Card Denies chest pain at rest, Denies chest pain with activity, Denies edema, Denies irregular heart rhythm, Denies claudication, Denies dyspnea, Denies dyspnea on exertion, Denies orthopnea, Denies paroxysmal nocturnal dyspnea and Denies slow heart rate Resp Denies cough, Denies dyspnea and Denies dyspnea on exertion GI Denies abdominal pain, Denies change in bowel habits, Denies excessive flatus, Denies nausea and Denies vomiting Denies urinary incontinence, Denies urinary hesitancy and Denies urinary urgency Musc Denies abnormal gait, Denies atrophy, Denies deformity, Reports arthralgias and Reports limited range of motion Skin/Breast Denies bleeding lesions, Denies changing lesions and Denies rash Neuro Denies abnormal gait, Denies behavioral changes and Denies lack of coordination Psych Denies behavioral changes Physical exam (Primary Care) Vital Signs: Last Vital Signs Pulse 80 01/23/25 08:24 BP 118/78 01/23/25 08:24 Pulse Ox 99 01/23/25 08:24 Oxygen Delivery Method Room Air 01/23/25 08:24 BMI result Body Mass Index 33.3 BMI Assessment/Plan discussion: High BMI High, discussed plan: lifestyle, weight reduction, dietary and physical activity Tobacco/Smoking Status: Tobacco use Status Tobacco use date assessed 01/23/25 01/23/25 08:29 Patient Tobacco Use Status Never used Tobacco 01/23/25 08:29 Tobacco use type Cigarette 01/23/25 08:29 e-Cigarette/Vaping Use Never Used 01/23/25 08:29 PHQ-9: PHQ-9 Score PHQ-9: Total score 0 01/23/25 08:58 Depression Screening Interpretation: Negative Thrive Assessment: Date of Thrive Assessment Date Thrive assessed 01/16/25 01/23/25 08:29 Currently or been in a relationship where the following occur: No concerns rep orted [facility] Head: Yes normal to inspection, Yes normocephalic and Yes atraumatic Ears: external ears normal Eyes General: appearance normal, both eyes and all related structures Eyelids: Yes eyelids normal Conjunctivae: conjunctivae normal Neck Neck: Yes normal visual inspection and Yes supple Resp Effort & Inspection: normal respiratory effort Auscultation: clear to auscultation bilaterally Cardio Jugular venous distension: no JVD Rate: regular rate Rhythm: regular rhythm Heart sounds: S1 normal heart sound present and S2 normal heart sound present GI Inspection: Yes normal to inspection Palpation (GI): Soft to palpation and nontender Auscultation: normal bowel sounds Skin General skin exam: no rashes or lesions noted Neuro General: no focal motor deficits Extrem Left upper extremity: shoulder/upper arm Details: abnormal ROM Details: pain with active ROM Details: in ABduction and in extension Psych Appearance: grossly normal Coding Level of Care Code Est Pt Level 3 (08056) Est Pt Prev Care 40-64y(74502) Diagnoses Physical exam Z00.00 Elevated total protein R77.8 Elevated LFTs R79.89 Additional Codes PHQ-9 - 40855 - PHQ-9 Billing: Yes ([id number]) Time Spent (min) 35 Assessment & Plan Assessment & Plan (1) Physical exam: Code(s): Z00.00 - Encounter for general adult medical examination without abnormal findings Category: Medical (2) Elevated total protein: Code(s): R77.8 - Other specified abnormalities of plasma proteins Category: Medical (3) Elevated LFTs: Code(s): R79.89 - Other specified abnormal findings of blood chemistry Category: Medical Plan Blood pressure to be managed by current hydrochlorothiazide dosing, alongside lifestyle measures. Hyperlipidemic concerns are addressed through nutritional and physical activity adjustments rather than pharmacotherapy, given the low CV risk. Liver function tests will be repeated, with possible hematology consultation contingent on outcomes. Continued participation in rehabilitative efforts targeting shoulder function and a timely follow-up colonoscopy is necessary as per prior adenoma findings. Patient was informed and verbally consented to the use of an ambient scribe for clinic note documentation during this visit. We deliberated on current management approaches for hypertension and hyperlipidemia, affirming the current antihypertensive therapy. Patient's dietary influences on cholesterol levels were explored, leading to a mutual decision to avoid pharmacotherapy due to a low CV risk score. Liver enzymes and total protein will be reassessed to rule out more sinister pathology, and the potential for specialist evaluation has been introduced as needed. The necessity of consistent physiotherapy for continued recovery from her shoulder surgery was stressed. We explored her colonoscopic history, establishing a follow-up path. Orders: Orders Liver Panel Today R79.89 - Other specified abnormal findings of blood chemistry Protein Electrophoresis, Serum Today R77.8 - Other specified abnormalities of plasma proteins Patient Instructions: - Continue hydrochlorothiazide 12.5 mg as prescribed. - Maintain physical activities and dietary adjustments for lipid management. - Schedule blood work to re-evaluate liver enzymes and total protein levels in 1-2 months. - Continue with physical therapy for left shoulder rehabilitation. - Follow recommended screening schedule for colonoscopy. - Avoid penicillin and related antibiotics due to documented allergy. - Contact our office should symptoms, especially regarding mobility or muscle pain, worsen.
--- OUTSIDE RECORDS SUMMARY | 2025-01-23 08:40 | XMS_ITS | Clinical Summary ---
Author Organization [employer] [facility] it Address [address] [place] [address] Care Team Providers Care Director Data Analytics Name Role Phone Thomas Fish MD Primary Care Provider Surgical History Surgery Date Site/Laterality Comments OTHER SURGICAL HISTORY PROCEDURE: [place] LAPS FULG/EXC OVARY VISCERA/PERITONEAL SURFACE; COMMENT: right [...] RESULTING AGENCY - 04/05/2023 12:55 PM EDT [id number] THINPREP PAP, IMAGED: NEGATIVE FOR SQUAMOUS INTRAEPITHELIAL [...] Recently Relevant to Health Maintenance Care Teams Director Data Analytics Relationship Specialty Start Date End Date Thomas Fish MD [address] [place] [address] PCP - General Internal Medicine 10/11/17
== END 2025-01-23 09:04 | disposition home or self-care (01) ==
PROVIDERS: PCP Internal Medicine; Visit Provider Internal Medicine
DX: Z00.00 Encounter for general adult medical examination without abnormal findings (principal); R77.8 Other specified abnormalities of plasma proteins; R79.89 Other specified abnormal findings of blood chemistry

== ENCOUNTER → 2025-01-23 08:17 | Outpatient (BNVA) | payer OTHER, SELFPAY | PROVIDERS: PCP Internal Medicine; Visit Provider Internal Medicine | DX: Z00.00 Encounter for general adult medical examination without abnormal findings (principal); R77.8 Other specified abnormalities of plasma proteins; R79.89 Other specified abnormal findings of blood chemistry | CPT/HCPCS: 96127; 99212; 99396 ==

== ENCOUNTER 2025-04-04 10:15 | Outpatient (AMB) | payer OTHER, SELFPAY ==
[2025-04-04 10:17] VITALS: BMI 33.3
--- NOTE | 2025-04-04 10:17 | A.OFFVIS_ITS ---
Vital Signs 04/04/25 10:17 Height 5 ft 3 in Weight 188 lb BMI 33.3 Intake Visit Reasons: OV - LT RTC repair 07/11/24 NE Intake Note: Apoorva is a 49 year old right hand dominant female who presents today for a follow up of her right shoulder s/p Right Rotator Cuff Repair 07/11/24. At her last visit it was recommended that she stays out of work until she is 100% as her job requires lifting. She was given additional PT. She reports that she is working with PT which is going well. She is having continued pain of the shoulder, she feels like this is nerve pain. Allergies penicillin V Allergy (Intermediate, Verified 01/23/25 08:47) hives HPI HPI OV - LT RTC repair 07/11/24 NE: Details: Apoorva is a 49 year old right hand dominant female who presents today for a follow up of her right shoulder s/p Right Rotator Cuff Repair 07/11/24. At her last visit it was recommended that she stays out of work until she is 100% as her job requires lifting. She was given additional PT. She reports that she is working with PT which is going well. She is having continued pain of the shoulder although she is improving compared to last week. She continues to do physical therapy. [facility] Medical History Diverticulosis Tubular adenoma of colon Upper back pain Pain of left scapula Pain of left clavicle Obese Essential hypertension Surgical History S/P left rotator cuff repair Rotator cuff tear, left History of gynecologic surgery H/O colonoscopy Family History Father Hypertension Mother No problems noted. 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 She continues to improve albeit slowly. Her postop course seems to have been complicated by some stiffness. Her cuff seems strong and she is improving. I recommend she continue therapy. She stay out of work and follow up in 3 months. At thr 12 month time point we are anticipating return to work. Coding Level of Care Code Est Pt Level 3 (99632) Diagnoses S/P left rotator cuff repair Z98.890
--- OUTSIDE RECORDS SUMMARY | 2025-04-04 11:24 | XMS_ITS | Clinical Summary ---
Author Organization [employer] [facility] it Address [address] [place] [address] Care Team Providers Care Director Of Individual Giving Name Role Phone Thomas Fish MD Primary Care Provider Surgical History Surgery Date Site/Laterality Comments OTHER SURGICAL HISTORY PROCEDURE: [place] LAPS FULG/EXC OVARY VISCERA/PERITONEAL SURFACE; COMMENT: right [...] - 2023-2 5 season) 2024 Influenza Vaccine (Season Ended) 2025 Cervical Cancer Screening: P ap Smear 03/30/2026 [...] age to complete this topic Meningococcal B Vaccine Aged Out No l onger eligible based on patient's age to complete [...] RESULTING AGENCY - 04/05/2023 12:55 PM EDT [id number] THINPREP PAP, IMAGED: NEGATIVE FOR SQUAMOUS INTRAEPITHELIAL [...] Relevant to Health Maintenance Care Teams Director Of Individual Giving Relationship Specialty Start Date End Date Thomas Fish MD [address] [place] [address] [place] [address] PCP - General Internal Medicine 10/11/17
== END 2025-04-04 11:04 | disposition home or self-care (01) ==
LOC: HO.HOS 10:15
PROVIDERS: PCP Internal Medicine; Visit Provider Orthopaedic Surgery
DX: Z47.89 Encounter for other orthopedic aftercare (principal); S46.011D Strain of muscle(s) and tendon(s) of the rotator cuff of right shoulder, subsequent encounter
CPT/HCPCS: 99213

== ENCOUNTER 2025-07-08 12:35 | Outpatient (AMB) | payer OTHER, SELFPAY ==
--- NOTE | 2025-07-08 12:37 | A.OFFVIS_ITS ---
Vital Signs 07/08/25 12:48 Handedness Ambidextrous Intake Visit Reasons: OV - LT RTC repair 07/11/24 NE Intake Note: Apoorva is a 49 year old right hand dominant female who presents today for a follow up of her right shoulder about 1 year s/p Right Rotator Cuff Repair 07/11/24. Today we will discuss returning to work. Patient reports when she has pain she takes Aleve and it offers relief. She says she has completed PT and rep orts they told her she does not need anymore visits. She currently is able to lift 8 pounds. She is unable to lift her arm completely staright above head but she says she has improved on how far up she can go. Allergies penicillin V Allergy (Intermediate, Verified 07/08/25 12:47) hives HPI HPI OV - LT RTC repair 07/11/24 NE: Details: Apoorva is a 49 year old right hand dominant female who presents today for a follow up of her right shoulder about 1 year s/p Right Rotator Cuff Repair 07/11/24. Today we will discuss returning to work. Patient reports when she has pain she takes Aleve and it offers relief. She says she has completed PT and reports they told her she does not need anymore visits. She currently is able to lift 8 pounds. She is unable to lift her arm completely straight above head but she says she has improved on how far up she can go. She has no pain. [facility] Medical History Diverticulosis Tubular adenoma of colon Upper back pain Pain of left scapula Pain of left clavicle Obese Essential hypertension Surgical History S/P left rotator cuff repair Rotator cuff tear, left History of gynecologic surgery H/O colonoscopy Family History Father Hypertension Mother No problems noted. 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 Assessment & Plan Assessment & Plan (1) S/P left rotator cuff repair: Comment: 07/11/24 NE Code(s): Z98.890 - Other specified postprocedural states Category: Surgical Plan: 50-year-old woman 1 year status post left rotator cuff tear and subsequent surgery. She may return to work without restrictions. She has some mild stiffness in the GRETCHEN position but no pain. Her surgery was complicated by adhesive capsulitis. She is certainly in the thawing phase at this point and no additional treatment is warranted. She has reached MMI. I explained this to her. She may follow up as needed. Coding Level of Care Code Est Pt Level 3 (46061) Diagnoses S/P left rotator cuff repair Z98.890
--- OUTSIDE RECORDS SUMMARY | 2025-07-08 12:41 | XMS_ITS | Clinical Summary ---
Author Organization [employer] [facility] it Address [address] [place] [address] Care Team Providers Care Brand Mgr Name Role Phone Thomas Fish MD Primary Care Provider Surgical History Surgery Date Site/Laterality Comments OTHER SURGICAL HISTORY PROCEDURE: [place] LAPS FULG/EXC OVARY VISCERA/PERITONEAL SURFACE; COMMENT: right [...] 2) 2023 Colorectal Cancer Screening: Colonoscopy 12/27/2023 HIV Screening 12/27/2023 Hepatitis C Screening 12/27/2023 Social Influencers of Health Screening 12/27/2023 COVID-19 Vaccine (1 - 2023-2 5 season) 2024 Depression Screening 11/28/2024 Influenza Vaccine (#1) 2025 Cervical Cancer Screening: P ap Smear [...] RESULTING AGENCY - 04/05/2023 12:55 PM EDT [id number] THINPREP PAP, IMAGED: NEGATIVE FOR SQUAMOUS INTRAEPITHELIAL LESION AND MALIGNANCY . INFLAMMATORY CHANGES ARE PRESENT. ELVER SOLIS(ASCP) (CASE ELECTRONICALLY SIGNED 04 05 2023) RESULT OF APTIMA HIGH RISK HPV ASSAY: HIGH RISK HPV: NEGATIVE (SEROTYPES 16,18,31,33,35,39,45,51,52,56,58,59,66,68) COMPLETED ON 2023-03-31 ADEQUACY: SATISFACTORY ENDOCERVICAL/TRANSFORMATION ZONE COMPONENT PRESENT. SOURCE: THINPREP PAP HPV ANY DX: REFLEX 16 AND 18, CERVICAL, IMAGED CLINICAL INFORMATION: HPV ANY DIAGNOSIS. HORMONES, [Z12.4] Paulina Natarajan DO LAB CYTOLOGY ORDERABLES Final Result HISTORICAL TESTING LAB RESULTING AGENCY from Last 3 Months or Most Recently Relevant to Health Maintenance Care Teams Brand Mgr Relationship Specialty Start Date End Date Thomas Fish MD [address] [place] [address] [place] [address] PCP - General Internal Medicine 10/11/17
== END 2025-07-08 12:54 | disposition home or self-care (01) ==
LOC: HO.HOS 12:36
PROVIDERS: PCP Internal Medicine; Visit Provider Orthopaedic Surgery
DX: Z47.89 Encounter for other orthopedic aftercare (principal); S46.011D Strain of muscle(s) and tendon(s) of the rotator cuff of right shoulder, subsequent encounter
CPT/HCPCS: 99213

== ENCOUNTER 2025-09-24 08:58 | Outpatient (REF) | payer OTHER, SELFPAY ==
--- OUTSIDE RECORDS SUMMARY | 2025-09-24 09:57 | XMS_ITS | Clinical Summary ---
Author Organization [email or web address] [facility] it Address [address] [place] [address] Care Team Providers Care Jack Spooler Tender Name Role Phone Thomas Fish MD Primary Care Provider Surgical History Surgery Date Site/Laterality Comments OTHER SURGICAL HISTORY PROCEDURE: [place] LAPS FULG/EXC OVARY VISCERA/PERITONEAL SURFACE; COMMENT: right [...] Last Done Comments Breast Cancer Screening 1973 Colorectal Cancer Screening: Colonoscopy 1973 DTaP,Tdap,and Td Vaccines (1 - Tdap) 1992 Hepatitis B Vaccines (1 of 3 - 19+ 3-dose series) 1992 Pneumococcal Vaccine: 50+ Ye ars (1 of 1 - PCV) 2023 Zoster Vaccines (1 of 2) 2023 HIV Screening 12/27/2023 Hepatitis C Screening 12/27/2023 Social Influencers of Health Screening 12/27/2023 Depression Screening 11/28/2024 COVID-19 Vaccine (1 - 2023-2 5 season) 2025 Influenza Vaccine (#1) 2025 Cervical Cancer Screening: P ap Smear 03/30/2026 03/30/2023 RSV Immunization Adult Patie nts (1 - 1-dose 75+ series) 2048 HIB Vaccines Aged Out No longer eligi [...] RESULTING AGENCY - 04/05/2023 12:55 PM EDT [id number] THINPREP PAP, IMAGED: NEGATIVE FOR SQUAMOUS INTRAEPITHELIAL [...] Recently Relevant to Health Maintenance Care Teams Jack Spooler Tender Relationship Specialty Start Date End Date Thomas Fish MD [address] [place] [address] TAL [place]DSON [id number] PCP - General Internal Medicine 10/11/17
[2025-09-24 10:21] LABS: Alanine Aminotransferase 45 U/L (0-31); Albumin Level 4.5 g/dL (3.5-5.0); Alkaline Phosphatase 89 U/L (39-117); Aspartate Amino Transferase 47 U/L (5-31); Total Protein 7.9 g/dL (6.5-8.0)
[2025-09-25 21:28] LABS: Prot Elec - Albumin 4.3 g/dL (3.8-4.8); Prot Elec - Alpha1 0.3 g/dL (0.2-0.3); Prot Elec - Alpha2 0.8 g/dL (0.5-0.9); Prot Elec - Beta 1 0.5 g/dL (0.4-0.6); Prot Elec - Beta 2 0.5 g/dL (0.2-0.5); Prot Elec - Gamma 1.4 g/dL (0.8-1.7); Prot Elec - Total Protein 7.6 g/dL (6.1-8.1)
== END 2025-09-24 08:59 | disposition home or self-care (01) ==
LOC: HO.HMGCLDS 08:58
PROVIDERS: PCP Internal Medicine; Visit Provider Internal Medicine
DX: R79.89 Other specified abnormal findings of blood chemistry (principal); R77.8 Other specified abnormalities of plasma proteins
CPT/HCPCS: 36415; 80076; 84165

== ENCOUNTER 2025-10-15 13:35 | Outpatient (AMB) | payer OTHER, SELFPAY ==
--- NOTE | 2025-10-15 13:56 | MHC.PC.OV ---
Vital Signs 10/15/25 13:57 Height 5 ft 3 in Weight 177 lb 2 oz BMI 31.4 BP 120/70 Blood Pressure Location Lt brachial Position Sitting Pulse 84 Pulse Source Pulse Oximeter Temp 97.1 F Temp Source Temporal Artery Scan Pulse Oximetry (%) 98 Oxygen Delivery Method Room Air Intake Visit Reasons: Transaminites Intake Note: Patient is here to follow up on Transaminites. 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 She denies any jaundice. No fever, change in bowel habits or abdominal pain. No recent traveling. Recent labs showed a slight elevation in liver enzymes at 47, with the normal range being up to 31. Her total protein was previously normal. She has not experienced chest pain or shortness of breath. Blood pressure well controlled with hydrochlorothiazide. On vitamin-D supplements for her low vitamin-D. [facility] Medical History Diverticulosis Tubular adenoma of colon Upper back pain Pain of left scapula Pain of left clavicle Obese Essential hypertension Surgical History S/P left rotator cuff repair Rotator cuff tear, left History of gynecologic surgery H/O colonoscopy Family History Father Hypertension Mother No problems noted. 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 Cognitive needs: No Hearing needs: No Vision needs: No Questionnaire Thrive Questionnaire Date Thrive assessed: 01/16/25 I am a: Patient What is your living situation today?: I have a steady place to live Within the past 12 months, did the food you bought not last and you didn't have the money to get more?: I choose not to answer this question Within the past 12 months, did you worry whether your food would run out before you got money to buy more?: Never true Do you have trouble paying for medicines?: No Do you have trouble getting transportation to medical appointments?: No Do you have trouble paying your heating and electricity bill?: No Do you have trouble taking care of your child, family member or friend?: No Do you have trouble with day-to-day activities such as bathing, preparing meals, shopping, managing finances, etc.?: I choose not to answer this question Are you currently unemployed and looking for a job?: No Are you interested in more education?: No Please select the resources that you would like help with: None Currently or been in a relationship where the following occur: No concerns reported THRIVE Score: 0 ONDINA-7 AMB Questionnaire ONDINA-7 Date ONDINA - 7 assessed: 10/15/25 Feeling nervous, anxious, or on edge: 0 = Not at all Not being able to stop or control worryin = Not at all Worrying too much about different things: 0 = Not at all Trouble relaxin = Not at all Being so restless that it is hard to sit still: 0 = Not at all Becoming easily annoyed or irritable: 0 = Not at all Feeling afraid as if something awful might happen: 0 = Not at all Total ONDINA-7 score (0-4 normal; 5-9 mild; 10-14 moderate; 15-21 severe): 0 Source: Developed by Drs. Luis Manuel De Dios, Kavya Dey, Gerry Becerra and colleagues, with an educational onrah from [employer]. ONDINA-7 Assessment Billing ONDINA-7 Assessment Tool: ONDINA-7 Assessment 98029 Review of Systems Const All systems reviewed & are unremarkable except as noted in HPI and below Card Denies chest pain at rest, Denies chest pain with activity, Denies edema, Denies irregular heart rhythm, Denies claudication, Denies dyspnea, Denies dyspnea on exertion, Denies orthopnea, Denies paroxysmal nocturnal dyspnea and Denies slow heart rate Resp Denies cough, Denies dyspnea and Denies dyspnea on exertion GI Denies abdominal pain, Denies change in bowel habits, Denies excessive flatus, Denies nausea and Denies vomiting Physical exam (Primary Care) Vital Signs: Last Vital Signs Temp 97.1 F 10/15/25 13:57 Pulse 84 10/15/25 13:57 BP 120/70 10/15/25 13:57 Pulse Ox 98 10/15/25 13:57 Oxygen Delivery Method Room Air 10/15/25 13:57 BMI result Body Mass Index 31.4 BMI Assessment/Plan discussion: High BMI High, discussed plan: lifestyle, weight reduction, dietary and physical activity Tobacco/Smoking Status: Tobacco use Status Tobacco use date assessed 10/15/25 10/15/25 14:02 Patient Tobacco Use Status Never used Tobacco 10/15/25 14:02 Tobacco use type Cigarette 10/15/25 14:02 e-Cigarette/Vaping Use Never Used 10/15/25 14:02 Thrive Assessment: Date of Thrive Assessment Date Thrive assessed 01/16/25 10/15/25 14:02 Currently or been in a relationship where the following occur: No concerns reported Resp Effort & Inspection: normal respiratory effort Auscultation: clear to auscultation bilaterally Cardio Jugular venous distension: no JVD Rate: regular rate Rhythm: regular rhythm Heart sounds: S1 normal heart sound present and S2 normal heart sound present Extrem General: Yes full ROM Coding Level of Care Code Est Pt Level 3 (94061) Diagnoses Essential hypertension I10 Low vitamin D level R79.89 Elevated LFTs R79.89 Additional Codes ONDINA-7 Assessment Billing - ONDINA-7 Assessment Tool: ONDINA-7 Assessment 40261 ([id number]) Time Spent (min) 18 Assessment & Plan Assessment & Plan (1) Essential hypertension: Code(s): I10 - Essential (primary) hypertension Category: Medical (2) Low vitamin D level: Code(s): R79.89 - Other specified abnormal findings of blood chemistry Category: Medical (3) Elevated LFTs: Code(s): R79.89 - Other specified abnormal findings of blood chemistry Category: Medical Plan Plan 1. Elevated Liver Function Tests The patient has a mild elevation of liver enzymes, with a value of 47 noted where the normal value is up to 31. This is not considered a severe elevation. An ultrasound of the liver will be ordered for further evaluation. 2. Essential hypertension Continue hydrochlorothiazide. Blood pressure goal is equal or less than 130/80. 3. Low vitamin-D level Continue vitamin-D supplements. Orders: Orders Vitamin D 25-OH Total 4 Months E55.9 - Vitamin D deficiency, unspecified Mitochondrial Antibody 4 Months R79.89 - Other specified abnormal findings of blood chemistry US abdomen munoz w elastography Today R7.89 - Other specified abnormal findings of blood chemistry Lipid Panel 4 Months E78.5 - Hyperlipidemia, unspecified Comprehensive [place]. Panel Fast 4 Months R79.89 - Other specified abnormal findings of blood chemistry Hepatitis A,B,C Profile 4 Months R7.89 - Other specified abnormal findings of blood chemistry
[2025-10-15 13:57] VITALS: BP 120/70; PULSE 84; TEMP 36.2; O2SAT 98; BMI 31.4
--- OUTSIDE RECORDS SUMMARY | 2025-10-16 07:06 | XMS_ITS | Clinical Summary ---
Author Organization [facility] it Address [address] [place] [address] Care Team Providers Care Business Enterprise Officer Name Role Phone Thomas Fish MD Primary Care Provider Surgical History Surgery Date Site/Laterality Comments OTHER SURGICAL HISTORY PROCEDURE: [place] LAPS FULG/EXC OVARY VISCERA/PERITONEAL SURFACE; COMMENT: right [...] Depression Screening 11/28/2024 COVID-19 Vaccine (1 - 2024-2 6 season) 2025 Influenza Vaccine (#1) 2025 Cervical [...] RESULTING AGENCY - 04/05/2023 12:55 PM EDT [id number] THINPREP PAP, IMAGED: NEGATIVE FOR SQUAMOUS INTRAEPITHELIAL [...] Recently Relevant to Health Maintenance Care Teams Business Enterprise Officer Relationship Specialty Start Date End Date Thomas Fish MD [address] [place] [address] TAL [place]DSON [address] PCP - General Internal Medicine 10/11/17
== END 2025-10-15 14:29 | disposition home or self-care (01) ==
LOC: HO.HMCH 13:36
PROVIDERS: PCP Internal Medicine; Visit Provider Internal Medicine
DX: I10 Essential (primary) hypertension (principal); R79.89 Other specified abnormal findings of blood chemistry

== ENCOUNTER → 2025-10-15 13:35 | Outpatient (BNVA) | payer OTHER, SELFPAY | PROVIDERS: PCP Internal Medicine; Visit Provider Internal Medicine | DX: I10 Essential (primary) hypertension (principal); R79.89 Other specified abnormal findings of blood chemistry; E55.9 Vitamin D deficiency, unspecified | CPT/HCPCS: 96127; 99212 ==